=== PATIENT | female | born 1935 | race Caucasian/White ===

== ENCOUNTER → 2023-11-17 09:56 | Outpatient (REF) | payer MEDICARE, SELFPAY | LOC: HWRAD 09:56 | PROVIDERS: ATTENDING PHYSICIAN Internal Medicine | DX: R10.84 Generalized abdominal pain (principal) | CPT/HCPCS: 74018 ==

== ENCOUNTER 2023-11-30 14:20 | Inpatient (IN) | payer MEDICARE, SELFPAY ==
[2023-11-30] VITALS (10 sets, daily range): BP systolic 122–189; BP diastolic 61–100; BMI 34.5; BMI 33.7
--- NOTE | 2023-11-30 08:56 | ED.GENMED ---
History of Present Illness
General
Chief Complaint: Abdominal Symptoms
Source: patient and family
Time Seen by Provider: 11/30/23 08:31
Travel History
Have you had any contact with someone who has COVID-19?: No
Do you have any symptoms of coronavirus? Fever > 100 degrees, chills, cough, shortness of breath, sore throat, loss of taste or smell, muscle aches, or headache?: No
History of Present Illness
History of Present Illness:
88-year-old female presents emergency room complaining of abdominal discomfort, distention, nausea. Patient has been having the symptoms for the past couple weeks. They seem to improve late last week but have worsened again. Patient has no
appetite to eat. She has lost about 20 pounds over the past 3 months. She feels somewhat constipated but has had bowel movements. Her last bowel movement was 4 days ago. Patient was seen by her primary care provider who did some blood work and a
obstruction series. Patient was told that the blood work was mostly normal and that the obstruction series showed a slight blockage and that she should increase her fiber intake. Patient has not had any vomiting.
Past History
Past History
ED Past Medical History: HTN, Hypercholesterolemia and NIDDM
ED Past Surgical History: Gynecological
Social History
Tobacco: Non-smoker
Phy Exam
Physical Exam
Physical Exam:
General: Awake, Alert, Oriented X3. No acute distress.
Vitals: Hypertensive
Head: Atraumatic
Eyes: Pupils equal, EOMI
Throat: Airway intact, no exudates
Neck: Trachea midline
Lungs: Clear and equal b/l
Heart: Regular rate, no murmurs
Abd: Soft, mildly distended, tender to palpation without rebound, no umbilical or inguinal hernias noted, No pulsatile mass
Rectal: Not impacted though there is a small amount of mobile stool in the rectum
Neuro: Nonfocal
Skin: Warm, dry, no rash
Extremities: pulses equal b/l, no edema
Course
Orders/Labs/Results
Orders:
Orders
11/30/23 08:54
0.9% Sodium Chloride 500 ml [Nss] 500 ml IV BOLUS
Iohexol [Omnipaque] See Protocol PO NOW STA
Ondansetron Injectable [Zofran] 4 mg IV NOW STA
11/30/23 08:55
CT Abd/pel W Iv And Oral Contr Urgent
Comment:
Reason For Exam: nausea, abd pain, weight loss
11/30/23 09:55
Complete Blood Count/With Diff Urgent
Comprehensive Metabolic Panel Urgent
Lipase Urgent
11/30/23 09:57
Urinalysis Reflex To Culture Urgent
Date Specimen was Collected: 11/30/23
Time Specimen was Collected: 09:56
Urine Microscopic Reflex Cult Urgent
Urine Culture Urgent
JOSE Source: U
Specimen Description:
Date Specimen was Collected: 11/30/23
Time Specimen was Collected: 09:56
11/30/23 13:15
Piperacillin/Tazo 4.5 Gram [Zosyn] 4.5 gram in 100 ml IV NOW
Potassium Chloride 10% Elixir [KCl Elixir] 40 meq PO NOW STA
11/30/23 13:36
ColoRectal Surgery Consult Routine
Consulting Provider: Bartolome Mendieta
Was physician already notified: Yes
11/30/23 13:53
HYDROmorphone [Dilaudid] 0.25 mg .ROUTE .STK-MED ONE
Ondansetron Injectable [Zofran] 4 mg .ROUTE .STK-MED ONE
11/30/23 13:54
Ondansetron Injectable [Zofran] 4 mg IV NOW STA
11/30/23 13:55
HYDROmorphone [Dilaudid] 0.25 mg IV NOW STA
11/30/23 14:03
Admit/Transfer Patient As Directed
Co-Sign Provider:
Level of Care: Inpatient admission
Assign to:: Medical/Surgical
Physician / Group: guadalupe/hospitalist
Diagnosis: abd pain
Reason for Hospitalization: abd pain, colonic lesion vs. stricture
Expected length of stay greater than two midnights?: Yes
ELOS- Estimated Length of Stay in days: 3
I certify the patient meets the requirements for IP care: Yes
11/30/23 14:04
Code Status As Directed
Resuscitation Status: Do not resuscitate
Reached after discussion with pt or family/Healthcare POA: Yes
DNR Bracelet Application ONCE
11/30/23 14:46
Oxycodone [Roxicodone] 5 mg PO Q4HPRN PRN
Abnormal Lab Results
11/30/23 11/30/23
09:55 09:57
WBC 11.6 H 10^3/uL
(4.8-10.8)
MCV 79.6 L fL
(81.0-99.0)
MCH 25.7 L pg
(27.0-31.0)
MCHC 32.2 L g/dL
(33.0-37.0)
RDW 17.7 H %
(11.5-14.5)
MPV 11.3 H fL
(7.4-10.4)
Absolute Neuts (auto) 9.2 H 10^3/uL
(1.4-6.5)
Absolute Monos (auto) 0.7 H 10^3/uL
(0.1-0.6)
Neutrophils % 79.1 H %
(42.2-75.2)
Lymphocytes % 12.7 L %
(20.5-51.1)
Potassium 3.3 L mmol/L
(3.5-5.1)
Creatinine 0.5 L mg/dL
(0.6-1.0)
Glucose 109 H mg/dl
(70-99)
Urine Ketones 3+ A
(Negative)
Urine Bilirubin 1+ A
(Negative)
Urine Urobilinogen 2+ A
(Neg - 1+)
Leukocyte Esterase Rfl 2+ A
(Negative)
Urine WBC (Reflex) 11-15 A /HPF
(0-5)
Urine Bacteria (Reflex) Moderate A
(Negative)
11/30/23 09:55
11/30/23 09:55
Vital Signs
Initial and Last Documented VS:
Initial Vital Signs
Temp Pulse Resp BP Pulse Ox
97.8 F 83 18 158/83 97
11/30/23 07:25 11/30/23 07:25 11/30/23 07:25 11/30/23 07:25 11/30/23 07:25
Last Documented Vital Signs
Temp Pulse Resp BP Pulse Ox
97.8 F 76 18 162/82 94
11/30/23 07:25 11/30/23 14:30 11/30/23 14:30 11/30/23 13:40 11/30/23 14:30
MDM/Problems Addressed
Differential Diagnosis Includes:
constipation, partial LBO, complete LBO, diverticulitis, sbo
MDM/Problems Addressed:
Patient presents with abdominal pain, nausea. She has had irregular bowel movements. She is fairly tender to exam and looks uncomfortable. CT with p.o. and IV contrast ordered with primary concern being a large or small bowel obstruction. Labs
hypokalemia. CT shows partial large bowel obstruction secondary to a stricture or mass. Differential includes diverticulitis with inflammatory stricture so a dose of Zosyn was ordered. Patient will require hospitalization for further evaluation
*Radiology
Radiology exam reviewed: radiology read reviewed
*Pulse Oximetry
Patient hypoxic: no
*Critical Care Note
Total Time (30-74mins, 75-104mins- exclusive of procedures): Not Applicable
Patient Management
Social determinants of health affecting care: Living situation and Strong social support
ED Attending Note
-
Portions of this chart may have been created with voice recognition software.� Occasional wrong word or��sound alike� substitutions may have occurred due to the inherent limitations of voice recognition software.
Discharge Plan
Departure
Patient Disposition: Admit
Date of Disposition: 11/30/23
Time of Disposition: 13:16
Admit to: Med/Surg
Presentation/result/management discussed w/ accepting MD/DO: Hospitalist
Condition: Fair
Discharge Problem:
partial large bowel obststruction
Interventions
Interventions:
*Risk Screen - Suicide Last Done: 11/30/23 07:25
*General Assessment Last Done: 11/30/23 07:25
*Neglect/Abuse Screening Last Done: 11/30/23 07:25
ED- Fall Risk Assessment Last Done: 11/30/23 10:05
*ED COVID-19 Vaccine History Last Done: 11/30/23 10:05
CC-Kvaxoy-Gbboxjxvaj Assessment Last Done: 11/30/23 10:05
[2023-11-30] MEDS: ZOFRAN 4 MG IV ×2 (09:50→13:55)
[2023-11-30] MEDS: OMNIPAQUE 50 ML PO (09:50)
[2023-11-30] MEDS: NSS 500 IV (09:51)
[2023-11-30 10:26] LABS: ALT (SGPT) 15 U/L (0-35); AST (SGOT) 30 U/L (14-36); Albumin 4.2 g/dl (3.5-5.0); Alkaline Phosphatase 83 U/L (38-126); Blood Urea Nitrogen 8 mg/dl (7-17); Calcium 9.6 mg/dl (8.4-10.2); Carbon Dioxide 28 mmol/L (22-30); Chloride 101 mmol/L (98-107); Estimated Creatinine Clearance 71 ml/min; Glucose 109 mg/dl (70-99); Lipase 54 U/L (23-300); Potassium 3.3 mmol/L (3.5-5.1); Sodium 137 mmol/L (135-145); Total Bilirubin 0.8 mg/dl (0.2-1.3); eGFR > 60.00
[2023-11-30 10:27] LABS: Urine Albumin Trace (Neg - Trace); Urine Bilirubin 1+ (Negative); Urine Character Clear (Clear); Urine Color Yellow; Urine Glucose Negative (Negative); Urine Ketone 3+ (Negative); Urine Leukocyte 2+ (Negative); Urine Nitrite Negative (Negative); Urine Occult Blood Negative (Negative); Urine Specific Gravity 1.025 (<1.030); Urine Urobilinogen 2+ (Neg - 1+)
[2023-11-30 10:42] LABS: % Basophils 0.9 % (0-2); % Eosinophils 0.6 % (0-6); % Immature Granulocytes 0.3 % (0-0.5); % Lymphocytes 12.7 % (20.5-51.1); % Monocytes 6.4 % (1.7-9.3); % Neutrophils 79.1 % (42.2-75.2); Absolute Basophils 0.1 10^3/uL (0-0.2); Absolute Eosinophils 0.1 10^3/uL (0-0.7); Absolute Lymphocytes 1.5 10^3/uL (1.2-3.4); Absolute Monocytes 0.7 10^3/uL (0.1-0.6); Absolute Neutrophils 9.2 10^3/uL (1.4-6.5); Hematocrit 39.4 % (37.0-47.0); Hemoglobin 12.7 g/dL (12.0-16.0); Mean Corp Hgb Conc. 32.2 g/dL (33.0-37.0); Mean Corpuscular Hgb 25.7 pg (27.0-31.0); Mean Corpuscular Volume 79.6 fL (81.0-99.0); Mean Platelet Volume 11.3 fL (7.4-10.4); Nucleated Red Blood Cells % 0 %; Platelet Count 333 10^3/uL (130-400); Red Blood Cell Count 4.95 10^6/uL (4.20-5.40); Red Cell Dist. Width 17.7 % (11.5-14.5); White Blood Cell Count 11.6 10^3/uL (4.8-10.8)
[2023-11-30 11:47] LABS: Urine Amorphous Seen; Urine Mucus Many; Urine Squamous Cell >30 /LPF (Few)
[2023-11-30 11:48] LABS: Urine Hyaline Cast 0-2 /LPF (0-2)
[2023-11-30 11:50] LABS: Urine Bacteria Moderate (Negative); Urine Red Blood Cell 0-2 /HPF (0-2)
--- NOTE | 2023-11-30 13:36 | HPS.HSE ---
Family Physician
-
Family Physician: Teodora Fraser PA-C
Chief Complaint
-
abd pain
History of Present Illness
88-year-old female past medical history as below who was presented with abdominal pain. Symptoms have been ongoing intermittently since October. Patient with some nausea but no vomiting. No bowel movement since last Monday. Has lost weight.
Severely decreased appetite. Had colonoscopy long time ago and was told not to follow-up due to age. Per daughters at bedside patient with history of diverticulitis. States on a regular basis she has daily bowel movements. Complaining of
abdominal pain. No fevers or chills. Denies any chest pain, shortness of breath or dysuria or increase in urgency or hematuria or headache or dizziness.
Medical History
Past Medical History
Past Medical History: Reports Other
Additional Past Medical History:
Primary hypertension
Prediabetes
Hyperlipidemia
Diverticulitis history
Mood disorder
Anxiety
Past Surgical History: Reports Gynocological (Hysterectomy)
Social History
Tobacco: Non-smoker
Alcohol: None
Family History
Family History: Not pertinent
Allergies / Home Medications
Allergies reflects when Allergies were last updated in [facility].
Home Medications with original date entered in [facility]
Allergy/Medication List:
Allergies
Allergy/AdvReac Type Severity Reaction Status Date / Time
No Known Allergies Allergy Verified 11/30/23 07:25
Home Medications
alpha lipoic acid 300 mg capsule 300 mg PO Daily 06/22/18
aspirin 325 mg tablet,delayed release 325 mg PO QPM 06/22/18
citalopram 20 mg tablet 20 mg PO DAILY 06/22/18
lisinopril 20 mg tablet 20 mg PO DAILY 06/22/18
lorazepam 0.5 mg tablet 0.5 mg PO DAILYPRN PRN ANXIETY 06/22/18
lovastatin 20 mg tablet,extended release 24 hr (Altoprev) 20 mg PO QPM 06/22/18
metformin 500 mg tablet 500 mg PO HS 06/22/18
multivitamin with folic acid 400 mcg tablet (Tab-A-Jerica) 1 tab PO DAILY 06/22/18
acetaminophen 325 mg tablet 325 mg PO Q4HPRN PRN if temp > 101 F/ mild pain ##30 06/25/18
loratadine 10 mg tablet 10 mg PO DAILY 11/30/23
Review of Systems
-
History Source: Patient and Family
A 12 point ROS was completed and negative except as noted: Yes
Physical Exam
Vital Signs
Vital Signs
Temp Pulse Resp BP Pulse Ox
97.8 F 79 27 189/79 97
11/30/23 07:25 11/30/23 12:45 11/30/23 12:45 11/30/23 12:31 11/30/23 12:45
Physical Exam
General: Well Developed, Well Nourished and No Apparent Distress
HEENT: NormoCephalic, Moist mucous membranes and Atraumatic
Respiratory: Clear
Cardiac: S1/S2 and Regular Rhythm; No Murmur or Rub
GI: Soft, Non Distended, Normal Bowel Sounds and Tender (Periumbilical and left middle quadrant); No Organomegaly
Rectal: Deferred by Provider
Musculoskeletal: No Clubbing, No Cyanosis and No Edema
Skin: No Rash
Neuro: Awake, No Motor Deficits and Nonfocal/grossly intact
Psych: Calm
Laboratory Results
-
11/30/23 09:55
11/30/23 09:55
Laboratory Results
Total Bilirubin 0.8 mg/dl (0.2-1.3) 11/30/23 09:55
AST 30 U/L (14-36) 11/30/23 09:55
ALT 15 U/L (0-35) 11/30/23 09:55
Alkaline Phosphatase 83 U/L (38-126) 11/30/23 09:55
Lipase 54 U/L (23-300) 11/30/23 09:55
Impression/Plan
-
#Abdominal pain likely secondary to descending colonic lesion 3 cm versus stricture likely secondary to diverticulitis
#History of diverticulitis
#Leukocytosis
Will start patient on IV antibiotic Unasyn
Clear liquid diet
Antinausea meds
PPI IV
Pain control
Start gentle IV fluids
Colorectal surgical consultation
#Primary hypertension
Hold BP meds for now
#Hypokalemia
replete/monitor
#Diabetes mellitus
Hold metformin
Insulin sliding scale and Accu-Cheks
#Depression/anxiety
Hold SSRIs. Continue Ativan
DVT prophylaxis with Lovenox
Discussed with 2 daughter's at bedside in detail
CODE STATUS DNR per patient and confirmed with 2 daughters at bedside
I spent a total of 78 minutes with the patient or on the floor. More than 50% of this time involved counseling and coordination of care.
[2023-11-30] MEDS: KCL ELIXIR 40 MEQ PO (13:44)
[2023-11-30] MEDS: ZOSYN 100 IV (13:45)
[2023-11-30] MEDS: DILAUDID 0.25 MG IV (13:55)
--- NOTE | 2023-11-30 14:03 | CON.CRS ---
Consultation
-
Date/Time Consultation Requested: 11/30/2023. 13:36
Date/Time Consultation Performed: 11/30/2023, 14:20
Requesting Provider: Wes Jefferson MD
Performing Provider: Bartolome Mendieta MD
Reason for Consultation: descending colon mass
Medical History
-
Chief Complaint: abdominal pain
History of Present Illness:
88-year-old female presents to the emergency department complaining of off-and-on abdominal pain since August 2023. The patient states that the pain did not really bother her but then her daughters noticed she had lost upwards of 30 pounds since
July. She began to feel increasing abdominal pain in October with associated distention, and lack of appetite. She felt like she knew something was wrong so she went to her primary care physician about a week ago who did blood work which was
normal and x-rays showed a large stool burden with no obstruction. She was told to eat more fiber at that time. The past week she has been feeling worse with increasing abdominal pain and she has not been able to eat much and has been sleeping
more often than she usually does. She was prescribed antinausea medication when she started to develop nausea which improved her symptoms. However, yesterday her pain was a 9.5 out of 10 and she came to the ER this morning. She currently says she
feels very belchy and has been hiccuping all morning. She feels quite distended. She has not had a bowel movement in 6 days. She denies blood in her stool. She states she has not had flatus for the past couple of days. Her past abdominal
surgery includes a hysterectomy. Her last colonoscopy was over 10 years ago and was normal. She denies a family history of colon or rectal cancer.
In the ER her white count is 11.6. Her hemoglobin is 12.7. Her vital signs are normal. CT of the abdomen and pelvis is suspicious for approximate 3 cm partially obstructing mass/malignancy in the proximal descending colon with some accompanying
small adjacent mesenteric lymph nodes. Stricture with inflammation would be less likely. No free air.
Past Medical History
Past Medical History: HTN, Hypercholesterolemia and Other (NIDDM)
Past Surgical History: Gynecological (hysterectomy)
Social History
Tobacco: Non-Smoker
Family History
Family History: Reviewed & Not Pertinent
Allergies / Home Medications
Allergy/AdvReac Type Severity Reaction Status Date / Time
No Known Allergies Allergy Verified 11/30/23 07:25
�Medication �Instructions �Recorded �Confirmed �Type
alpha lipoic acid 300 mg capsule 300 mg PO Daily 06/22/18 11/30/23 History
aspirin 325 mg tablet,delayed 325 mg PO DAILY 06/22/18 11/30/23 History
release
citalopram 20 mg tablet 20 mg PO DAILY 06/22/18 11/30/23 History
lisinopril 20 mg tablet 20 mg PO DAILY 06/22/18 11/30/23 History
lorazepam 0.5 mg tablet 0.5 mg PO DAILYPRN PRN ANXIETY 06/22/18 11/30/23 History
metformin 500 mg tablet 500 mg PO DAILY 06/22/18 11/30/23 History
multivitamin with folic acid 400 1 tab PO DAILY 06/22/18 11/30/23 History
mcg tablet (Tab-A-Jerica)
acetaminophen 325 mg tablet 325 mg PO Q4HPRN PRN if temp > 101 06/25/18 11/30/23 Rx
F/ mild pain ##30
loratadine 10 mg tablet 10 mg PO DAILY 11/30/23 11/30/23 History
lovastatin 20 mg tablet 20 mg PO DAILY 11/30/23 11/30/23 History
Review of Systems
-
History Source: Patient
Constitutional: Weight Loss
Abdomen/GI: Nausea, Constipated, Anorexia and Pain
A 10 point review of systems was completed, and was negative except as per HPI.
Physical Exam
Vital Signs
Temp 97.8 F 11/30/23 07:25
Pulse 79 11/30/23 13:45
Resp Rate 21 11/30/23 13:45
Blood pressure 162/82 11/30/23 13:40
SaO2 92 11/30/23 13:45
11/29/23 11/30/23 12/01/23
06:59 06:59 06:59
Actual Weight 88.3 kg
Body Mass Index (BMI) 34.5
Lab Results / Allergies
11/30/23 09:55
11/30/23 09:55
WBC 11.6 10^3/uL (4.8-10.8) H 11/30/23 09:55
Hgb 12.7 g/dL (12.0-16.0) 11/30/23 09:55
Hct 39.4 % (37.0-47.0) 11/30/23 09:55
Plt Count 333 10^3/uL (130-400) 11/30/23 09:55
Abs Immat Gran (auto) 0.0 10^3/uL (0-0.05) 11/30/23 09:55
Neutrophils % 79.1 % (42.2-75.2) H 11/30/23 09:55
Allergy/AdvReac Type Severity Reaction Status Date / Time
No Known Allergies Allergy Verified 11/30/23 07:25
Physical Exam
General: Well Developed, Well Nourished and No Apparent Distress
GI: Soft, Tender (LLQ) and Distended
Neuro: AO x 3
Psych: Calm
Data Reviewed
-
CT Scan: Image Personally Visualized and interpreted, Report Reviewed by me and Discussed with Patient
Labs: Labs Reviewed by me, Discussed with Physician and Discussed with Patient
Old Records: Reviewed
Assessment / Plan
-
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
Plan:
Patient to remain NPO. Will reach out to GI and see if he is a candidate for colonic stent. I went over the CT with the family. Will place NGT given nausea/distention.
[2023-11-30] MEDS: LR 1000 IV (17:17)
[2023-11-30] MEDS: APRESOLINE 5 MG IV (17:42)
[2023-11-30] MEDS: UNASYN IV (17:42)
[2023-11-30] MEDS: NSS (PRESERVATIVE FREE) 10 ML IV (17:48)
[2023-11-30] MEDS: PROTONIX IV 40 MG IV (17:48)
[2023-11-30 17:55] LABS: Glucose - Point of Care 142 mg/dl (70-99)
[2023-11-30] MEDS: MORPHINE SULFATE 2 MG IV (18:14)
--- NOTE | 2023-11-30 19:46 | PTCARENOTE ---
[facility] 1645 pt came up form ED to room 414-1. Pt able to walk into room. Admission and assessment done. Pt with NGT to left nare just placed in ED. Pt spitting up some blood with small clots. Bloody drainage coming from the NGT into canister also
aprox 200ml Dr Robertson notified of this and of patients BP of 172/100. (Lovenox also held), IV hydrazine ordered for elevated BP. Milana ARCOS also notified of bloody drainage and pt spitting up blood. Pt with some pain to abd, morphine
given. Pt has family in the room. Pt instructed to ring for assistance.
[2023-11-30] MEDS: DILAUDID 0.5 MG IV (20:56)
[2023-11-30 23:41] LABS: Glucose - Point of Care 136 mg/dl (70-99)
[2023-12-01] VITALS (8 sets, daily range): BP systolic 130–156; BP diastolic 57–70
[2023-12-01] MEDS: UNASYN IV ×4 (00:58→20:05)
[2023-12-01 05:46] LABS: Glucose - Point of Care 126 mg/dl (70-99)
[2023-12-01] MEDS: LR 1000 IV (05:49)
--- NOTE | 2023-12-01 06:47 | CON.GI ---
Addendum entered and electronically signed by Keny Vásquez MD 12/01/23 13:00:
Patient seen and examined, agree with nurse practitioner note. Patient is an 88-year-old, overall mostly healthy who presents with increasing constipation and nausea since early October. CT scan shows concern for 3 cm obstructing mass in the
proximal descending colon with adjacent lymphadenopathy, concerning for malignancy. She had NG tube placed with some improvement in her bloating since then. She not had any bowel movements for the last week. On exam she has mild upper abdominal
tenderness though is soft and overall minimal, no rebound or guarding. Colorectal surgery has been consulted, discussed with Dr. Blevins, for possible colonic stent today.
Original Note:
Consultation
-
Date/Time Consultation Requested: 11/30/23 1700
Date/Time Consultation Performed: 12/01/23 0800
Requesting Provider: Bartolome Mendieta MD
Performing Provider: JEEVAN Latif, Devin Vásquez MD
Reason for Consultation: eval for colon stent
Medical History
Chief Complaint / HPI
Chief Complaint: nausea constipation
History of Present Illness:
Pt is an 88yo presents with hx HTN, DM, hyperlipidemia, diverticulitis, mood disorder, anxiety with onset of nausea and decrease appetite since early October. Symptom progressed and she has no BM's since last week despite multiple laxatives. + wt
loss. CT on admission with concern for 3 cm obstructing mass/malignancy in proximal descending colon with adjacent nodes. Stricture with inflammation less likely. No free air. liver calcification likely from prior cyst noted, smaller lesion
liver cysts, right renal lesion benign angiomyolipoma and small HH. Hx colonoscopy 2005 with Internal hemorrhoids, small lipoma AC.
Pt also admits to increased GERD with nausea over last few weeks. She denies vomiting, diarrhea, or rectal bleeding. She was noted with blood after NGT placed with trauma of placement but some improved bloating since placement.
Past Medical History
Past Medical History: HTN, Hypercholesterolemia, NIDDM, Psychiatric (mood disorder, anxiety) and Other ( diverticulitis, osteoarthritis )
Past Surgical History: Gynecological (hysterectomy)
Social History
Tobacco: Non-Smoker
Alcohol: None
Drug: None
Living: Alone
Employment: Retired
Family History
Family History: Other (no family hx colon CA or polyps)
Allergies / Home Medications
Allergy/AdvReac Type Severity Reaction Status Date / Time
No Known Allergies Allergy Verified 11/30/23 07:25
�Medication �Instructions �Recorded
alpha lipoic acid 300 mg capsule 300 mg PO Daily 06/22/18
aspirin 325 mg tablet,delayed 325 mg PO DAILY 06/22/18
release
citalopram 20 mg tablet 20 mg PO DAILY 06/22/18
lisinopril 20 mg tablet 20 mg PO DAILY 06/22/18
lorazepam 0.5 mg tablet 0.5 mg PO DAILYPRN PRN ANXIETY 06/22/18
metformin 500 mg tablet 500 mg PO DAILY 06/22/18
multivitamin with folic acid 400 1 tab PO DAILY 06/22/18
mcg tablet (Tab-A-Jerica)
acetaminophen 325 mg tablet 325 mg PO Q4HPRN PRN if temp > 101 06/25/18
F/ mild pain ##30
loratadine 10 mg tablet 10 mg PO DAILY 11/30/23
lovastatin 20 mg tablet 20 mg PO DAILY 11/30/23
Review of Systems
-
History Source: Patient and Family
Constitutional: Reports Other (hard of hearing )
EENT: Reports No Symptoms
Respiratory: Reports No Symptoms
Cardiac: Reports No Symptoms
Abdomen/GI: Reports Nausea, Constipated and Other (bloating )
: Reports No Symptoms
Musculoskeletal: Reports No Symptoms
Skin: Reports No Symptoms
Neurological: Reports Weakness
Endocrine: Reports No Symptoms
Hematologic/Lymphatic: Reports Bleeding (from NGT trauma)
Vital Signs
Temp Pulse Resp BP Pulse Ox
98.2 F 80 16 122/61 96
11/30/23 23:00 11/30/23 23:00 11/30/23 23:00 11/30/23 23:00 11/30/23 23:00
Physical Exam
Exam
General: Well Developed, Well Nourished and Other (elderly female)
HEENT: Normocephalic and Anicteric
Respiratory: Clear
Cardiac: Regular Rhythm
GI: Soft, Tender (mild), Distended (mild ) and Other (NGT with some blood in canister-- per family some vomiting clots after placement improved )
Musculoskeletal: No Clubbing and No Cyanosis
Skin: Warm and Dry
Neuro: Awake, Alert, AO x 3 and Other (hard of hearing )
Psych: Calm
Results
WBC 11.6 10^3/uL (4.8-10.8) H 11/30/23 09:55
Hgb 12.7 g/dL (12.0-16.0) 11/30/23 09:55
Hct 39.4 % (37.0-47.0) 11/30/23 09:55
MCV 79.6 fL (81.0-99.0) L 11/30/23 09:55
Plt Count 333 10^3/uL (130-400) 11/30/23 09:55
Absolute Neuts (auto) 9.2 10^3/uL (1.4-6.5) H 11/30/23 09:55
Sodium 137 mmol/L (135-145) 11/30/23 09:55
Potassium 3.3 mmol/L (3.5-5.1) L 11/30/23 09:55
Chloride 101 mmol/L (98-107) 11/30/23 09:55
Carbon Dioxide 28 mmol/L (22-30) 11/30/23 09:55
BUN 8 mg/dl (7-17) 11/30/23 09:55
Creatinine 0.5 mg/dL (0.6-1.0) L 11/30/23 09:55
Calcium 9.6 mg/dl (8.4-10.2) 11/30/23 09:55
Total Bilirubin 0.8 mg/dl (0.2-1.3) 11/30/23 09:55
AST 30 U/L (14-36) 11/30/23 09:55
ALT 15 U/L (0-35) 11/30/23 09:55
Alkaline Phosphatase 83 U/L (38-126) 11/30/23 09:55
Lipase 54 U/L (23-300) 11/30/23 09:55
Diagnostic Image Results:
11/17/23 abd film: Nonobstructive bowel gas pattern
11/30/23 CT Abd/pel W Iv And Oral Contr
Findings suspicious for approximate 3 cm partially obstructing mass/malignancy in the proximal descending colon with some accompanying small adjacent mesenteric lymph nodes. Stricture with inflammation would be less likely. No free air.
Small collection of calcifications in the left lobe of the liver most likely the sequela of involuted cyst seen on remote prior CT.
Few small low-attenuation hepatic lesions centrally only the largest of which can be confirmed as cysts.
Small fatty density right renal lesion compatible with a benign angiomyolipoma.
Small hiatal hernia.
Prior GI Procedures:
EGD: none
Colonoscopy:2005 internal hemorrhoids, small lipoma AC
Assessment / Plan
-
Pt is an 88yo presents with hx HTN, DM, hyperlipidemia, diverticulitis, mood disorder, anxiety with onset of nausea and decrease appetite. she has no BM's since last week with wt loss. CT on admission with concern for 3 cm obstructing
mass/malignancy in proximal descending colon with adjacent nodes. Stricture with inflammation less likely. No free air. liver calcification likely from prior cyst noted, smaller lesion liver cysts, right renal lesion benign angiomyolipoma and
small HH.
-concern for descending colon lesion on CT with large bowel obstruction
-wt loss
-NGT with trauma and bleeding with placement
-hx diverticulitis years ago
-leukocytosis
-constipation
-hypokalemia
other medical problems:
-DM
-HTN
-depression/anxiety
PLAN:
etiology of symptoms with concern for large bowel obstruction -- diverticular vs mass vs other
plan for colonoscopy for evaluation with possible stent placement
AM labs pending to recheck K as repleted yesterday will add INR
NPO
cont NGT -- confirmed with air auscultation and improved bloating on exam-- some trauma with bleeding on placement now improving cont to monitor
reviewed is stent placed with need stent diet
updated family all questions answered-
-
-
Thank you for consultation and allowing me to participate in the patient's care. Please call the cyber incident responder GI physician during the after hours with any questions or concerns.
[2023-12-01] MEDS: PROTONIX IV 40 MG IV (08:08)
[2023-12-01] MEDS: NSS (PRESERVATIVE FREE) 10 ML IV (08:08)
[2023-12-01 09:20] LABS: % Basophils 0.8 % (0-2); % Eosinophils 1.9 % (0-6); % Immature Granulocytes 0.5 % (0-0.5); % Lymphocytes 8.8 % (20.5-51.1); % Monocytes 8.7 % (1.7-9.3); % Neutrophils 79.3 % (42.2-75.2); Absolute Basophils 0.1 10^3/uL (0-0.2); Absolute Eosinophils 0.2 10^3/uL (0-0.7); Absolute Immature Granulocytes 0.1 10^3/uL (0-0.05); Absolute Lymphocytes 0.9 10^3/uL (1.2-3.4); Absolute Monocytes 0.9 10^3/uL (0.1-0.6); Absolute Neutrophils 7.8 10^3/uL (1.4-6.5); Hematocrit 31.9 % (37.0-47.0); Mean Corp Hgb Conc. 31.7 g/dL (33.0-37.0); Mean Corpuscular Hgb 25.8 pg (27.0-31.0); Mean Corpuscular Volume 81.6 fL (81.0-99.0); Nucleated Red Blood Cells % 0 %; Red Blood Cell Count 3.91 10^6/uL (4.20-5.40); Red Cell Dist. Width 17.3 % (11.5-14.5); White Blood Cell Count 9.9 10^3/uL (4.8-10.8)
[2023-12-01 09:31] LABS: Hemoglobin 10.1 g/dL (12.0-16.0)
[2023-12-01 09:37] LABS: Blood Urea Nitrogen 10 mg/dl (7-17); Calcium 8.7 mg/dl (8.4-10.2); Carbon Dioxide 28 mmol/L (22-30); Chloride 103 mmol/L (98-107); Estimated Creatinine Clearance 70 ml/min; Glucose 103 mg/dl (70-99); Potassium 3.1 mmol/L (3.5-5.1); Sodium 136 mmol/L (135-145); eGFR > 60.00
[2023-12-01 10:27] LABS: Mean Platelet Volume 10.9 fL (7.4-10.4); Platelet Count 244 10^3/uL (130-400)
--- NOTE | 2023-12-01 10:47 | W.PN.HOSP.TC ---
Today's Communication/Plan
-
Colonoscopy
Continue with IV fluids
Pain control
Antinausea meds
Replete KCl
Assessment / Plan
Assessment / Plan
#Abdominal pain likely secondary to descending colonic lesion 3 cm versus stricture likely secondary to diverticulitis
#History of diverticulitis
#Leukocytosis
Will start patient on IV antibiotic Unasyn for now
N.p.o.
Antinausea meds
PPI IV
Pain control
Status post traumatic NG tube placement
Start gentle IV fluids
Colorectal surgical consultation
GI consulted plan for colonic stent placement
#Hypokalemia
replete/monitor
#Primary hypertension
Hold BP meds for now
#Hypokalemia
replete/monitor
#Diabetes mellitus
Hold metformin
Insulin sliding scale and Accu-Cheks
#Depression/anxiety
Hold SSRIs.
DVT prophylaxis SCDs some improvement in NG tube output
Discussed with daughter at bedside in detail
CODE STATUS DNR per patient and confirmed with 2 daughters at bedside
Anticipated Discharge: > 48 hours
Subjective/Interval History
-
Date of Service: December 01, 2023
States of intermittent abdominal pain
Status post NG tube placement in the ER on admission
Objective Data
-
Labs:
Laboratory Results
12/01/23 12/01/23
08:35 09:29
WBC 9.9
Hgb 10.1 L D
Hct 31.9 L
Plt Count 244 D
PT Pending
INR Pending
Sodium 136
Potassium 3.1 L
Chloride 103
Carbon Dioxide 28
BUN 10
Creatinine 0.5 L
Glucose 103 H
Calcium 8.7
Vital Signs:
Vital Signs
Temp Pulse Resp BP Pulse Ox
98.2 F 74 16 131/65 92
12/01/23 07:41 12/01/23 07:41 12/01/23 07:41 12/01/23 07:41 12/01/23 08:25
I&O
11/30/23 12/01/23 12/02/23
06:59 06:59 06:59
Intake Total 1320 / 1320
Output Total 250 / 250
Balance 1070 / 1070
Physical Exam
-
General: Well Developed and No Apparent Distress
HEENT: Normocephalic, Atraumatic, Moist Mucous Membranes and Other (NG tube with bilious/bloody output)
Respiratory: Clear to Auscultation
Cardiac: Regular Rhythm and S1/S2; Negative Murmur, Rub or Gallop
GI: Soft, Normal Bowel Sounds, Tender and Distended; Negative Organomegaly
Rectal: Deferred by Provider
Musculoskeletal: No Clubbing, No Cyanosis and No Edema
Skin: Negative Rash
Neuro: Awake, No Motor Deficits and Nonfocal/Grossly Intact
Psych: Calm
--- NOTE | 2023-12-01 11:05 | CM ---
Addendum entered by Susy Bobby 12/01/23 11:11:
IMM benefit explained to daughter; form signed @[id number]
Original Note:
Met with patient and daughters at the bedside; initial assessment completed
Pharmacy verified: [facility]
Daughter, Delores, reported that her mother lives in an one floor In-Law suite attached to her home; bathroom is handicap accessible; patient's son lives next door
PLOF: daughter reported that mother was independent with ADLs; ambulated with a walker or cane; no longer drives
DME: walker, cane, grab bars in bath, raised toilet, shower chair
SNF/Rehab/Home Health utilization history: none in the past 5 years
Plan: discharge disposition to be determined; case management will continue to follow and support DC needs
[2023-12-01 11:55] LABS: INR 1.21; PT 15.1 Sec (11.4-14.6)
[2023-12-01] MEDS: KCL 270 MEQ IV (12:26)
--- NOTE | 2023-12-01 12:27 | W.PN.CRS1 ---
Today's Communication / Plan
-
continue ngt
stent placement today with GI
Assessment/Plan
-
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
Plan:
1. WBC still normal. Vitals normal.
2. Continue IV antibiotics.
3. Continue NPO status with NGT.
4. For colonic stent today with GI.
5. Wound RN for stoma marking.
6. Possible colectomy with colostomy if unable to place stent. Discussed with patient and family.
Subjective Data
Subjective Data
Date of Service: December 01, 2023
Patient states she feels a little better. Her abdomen is less distended. She has not had any bowel function.
Objective Data
-
Vital Signs
Temp Pulse Resp BP Pulse Ox
98.2 F 74 16 131/65 92
12/01/23 07:41 12/01/23 07:41 12/01/23 07:41 12/01/23 07:41 12/01/23 08:25
Intake & Output
11/30/23 12/01/23 12/02/23
06:59 06:59 06:59
Intake Total 1320 / 1320
Output Total 250 / 250
Balance 1070 / 1070
Intake:
IV fluids (Total) 1000 / 1000
IV piggybacks 200 / 200
Amount instilled into GI Tube ( 120 / 120
Total)
[place] Sump 120 / 120
Output:
Gastrointestinal tube output ( 250 / 250
Total)
[place] Sump 250 / 250
Other:
Number of unmeasured voidings 3
Number of approximated MODERATE 1
amounts of urine
Lab Results
12/01/23 08:35
12/01/23 08:35
Physical Exam
-
General: No Acute Distress and AOx3
Abdomen: Soft, Distended (moderate ) and Non Tender
Skin: Warm and Dry
[2023-12-01 12:28] LABS: Glucose - Point of Care 102 mg/dl (70-99)
[2023-12-01 12:43] LABS: Glycohemoglobin (HgbA1c) 6.3 % (4.0-5.6)
--- NOTE | 2023-12-01 13:00 | W.PN.UPDATE ---
Update Note
Progress Note Update
For billing purposes
--- NOTE | 2023-12-01 13:38 | PTCARENOTE ---
Tap water enema 500ml given with moderate amount formed brown stool return. Pt tolerated well.
--- NOTE | 2023-12-01 13:42 | WOUNDNOTE ---
[facility] RN NOTE: Patient visited for left sided and upper right sided stoma marking. Patients abdomen soft, obese and patient reports increased distension. Rectus muscle was identified by following nipple line, as patient was too sore and weak to cough.
Abdomen was inspected in lying and sitting position (patient could not tolerate standing due to nausea). Care was taken to avoid creases and folds. Patient and family made aware that topography of abdomen may change after surgery and that surgeon
will make final determination of stoma placement. Patient and family state understanding and all questions answered. Will follow up with patient upon stoma creation. AJ Baum updated.
[2023-12-01] MEDS: CHLORASEPTIC/SORE THROAT SPRAY 1 SPRAY PO ×2 (17:00→21:02)
[2023-12-01 17:30] LABS: Glucose - Point of Care 110 mg/dl (70-99)
[2023-12-01 19:33] LABS: Glucose - Point of Care 115 mg/dl (70-99)
[2023-12-01 22:27] LABS: Glucose - Point of Care 142 mg/dl (70-99)
[2023-12-02] MEDS: LR IV ×2 (00:06→09:41)
[2023-12-02] MEDS: UNASYN IV ×2 (00:24→05:46)
[2023-12-02 03:00] VITALS: BP 141/77
[2023-12-02] MEDS: LR 1000 IV ×2 (04:16→14:04)
[2023-12-02 05:30] LABS: Glucose - Point of Care 138 mg/dl (70-99)
[2023-12-02 07:00] VITALS: BP 137/64
[2023-12-02 07:52] LABS: % Basophils 0.5 % (0-2); % Immature Granulocytes 0.9 % (0-0.5); % Lymphocytes 7.4 % (20.5-51.1); % Neutrophils 86.2 % (42.2-75.2); Absolute Immature Granulocytes 0.1 10^3/uL (0-0.05); Absolute Lymphocytes 0.6 10^3/uL (1.2-3.4); Absolute Monocytes 0.4 10^3/uL (0.1-0.6); Absolute Neutrophils 6.7 10^3/uL (1.4-6.5); Hematocrit 30.3 % (37.0-47.0); Hemoglobin 9.7 g/dL (12.0-16.0); Mean Corpuscular Volume 81.2 fL (81.0-99.0); Mean Platelet Volume 11.5 fL (7.4-10.4); Nucleated Red Blood Cells % 0 %; Platelet Count 218 10^3/uL (130-400); Red Blood Cell Count 3.73 10^6/uL (4.20-5.40); Red Cell Dist. Width 17.2 % (11.5-14.5); White Blood Cell Count 7.8 10^3/uL (4.8-10.8)
[2023-12-02] MEDS: CHLORASEPTIC/SORE THROAT SPRAY 1 SPRAY PO (08:13)
[2023-12-02] MEDS: PROTONIX IV 40 MG IV (08:13)
[2023-12-02] MEDS: NSS (PRESERVATIVE FREE) 10 ML IV (08:13)
[2023-12-02 08:19] LABS: Blood Urea Nitrogen 10 mg/dl (7-17); Calcium 8.9 mg/dl (8.4-10.2); Carbon Dioxide 29 mmol/L (22-30); Chloride 103 mmol/L (98-107); Estimated Creatinine Clearance 70 ml/min; Glucose 126 mg/dl (70-99); Potassium 3.8 mmol/L (3.5-5.1); Sodium 138 mmol/L (135-145); eGFR > 60.00
--- NOTE | 2023-12-02 09:18 | W.PN.GI.CBS2 ---
Today's Communication / Plan
-
See assessment and plan for details.
Assessment / Plan
-
1. Colonic obstruction: Likely secondary to malignancy, status post colonoscopy yesterday with biopsy and colonic stent, now decompressed with multiple bowel movements, much improved exam, no pain, x-ray with stent in place. At this point we will
DC NG tube, start clear liquid diet, continue observation and await pathology results. Colorectal surgery is following.
Subjective
Subjective
Date of Service: December 02, 2023
Patient feeling well, had multiple bowel movements after colonic stent yesterday, no abdominal pain, much less distended.
Objective
Data Reviewed
Laboratory Data:
Laboratory Results
12/02/23 06:45
12/02/23 06:44
Laboratory Results
PT 15.1 Sec (11.4-14.6) H 12/01/23 11:21
INR 1.21 12/01/23 11:21
Total Bilirubin 0.8 mg/dl (0.2-1.3) 11/30/23 09:55
AST 30 U/L (14-36) 11/30/23 09:55
ALT 15 U/L (0-35) 11/30/23 09:55
Alkaline Phosphatase 83 U/L (38-126) 11/30/23 09:55
Lipase 54 U/L (23-300) 11/30/23 09:55
Vital Signs and I&O:
Vital Signs
Temp Pulse Resp BP Pulse Ox
98 F 76 20 137/64 97
12/02/23 07:00 12/02/23 07:00 12/02/23 07:00 12/02/23 07:00 12/02/23 07:00
I&O
12/01/23 12/02/23 12/03/23
06:59 06:59 06:59
Intake Total 1320 / 1320 1190 / 1190
Output Total 250 / 250 0 / 0
Balance 1070 / 1070 1190 / 1190
Physical Exam
Physical Exam
General: NAD
Abdomen: normal bowel sounds, soft, no tenderness, no masses or bruits, no ascites
--- NOTE | 2023-12-02 10:22 | W.PN.HOSP.TC ---
Today's Communication/Plan
-
Resume home meds
Clear liquid diet
Check anemia labs
Assessment / Plan
Assessment / Plan
Gen-AAOx3, NAD, obese
HEENT-NC, AT, anicteric, clear oral mm
Neck-supple
CV-reg, no M, +S1/S2
Lungs-clear B/L
Abd-soft, NT, ND
Ext-no edema
Musculoskeletal-no cyanosis, clubbing
Skin-warm and dry
Neuro-grossly non-focal
Psych-calm, cooperative
Colonic obstruction -due to descending colon mass. Stricture noted on colonoscopy, stent placed. Biopsy done, pathology pending. NG tube removed. Clear liquid diet started. Awaiting colorectal surgery input.
Leukocytosis resolved. Afebrile. Can discontinue further antibiotics.
Hypokalemia -resolved.
Essential hypertension -stable. Was on lisinopril prior to admission. Can resume.
Normocytic anemia -likely acute and possibly related to hemodilution from IV fluids. Monitor CBC for now. Check anemia labs.
DM2 without hyperglycemia -was on metformin prior to admission. Hemoglobin A1c 6.3%. Glucoses are controlled.
Hyperlipidemia -on lovastatin.
Depression/anxiety -resume home meds.
Obesity due to excess calories
DNR
Family updated at the bedside.
Anticipated Discharge: 24 - 48 hours
Subjective/Interval History
-
Date of Service: December 02, 2023
Patient seen and examined. Complaining of sore throat related to NG tube. Denies abdominal pain or nausea.
Objective Data
-
Labs:
Laboratory Results
12/02/23 12/02/23
06:44 06:45
WBC 7.8
Hgb 9.7 L
Hct 30.3 L
Plt Count 218
Sodium 138
Potassium 3.8
Chloride 103
Carbon Dioxide 29
BUN 10
Creatinine 0.5 L
Glucose 126 H
Calcium 8.9
Vital Signs:
Vital Signs
Temp Pulse Resp BP Pulse Ox
98 F 76 20 137/64 97
12/02/23 07:00 12/02/23 07:00 12/02/23 07:00 12/02/23 07:00 12/02/23 08:00
I&O
12/01/23 12/02/23 12/03/23
06:59 06:59 06:59
Intake Total 1320 / 1320 1190 / 1190
Output Total 250 / 250 0 / 0
Balance 1070 / 1070 1190 / 1190
Review of Systems
-
History Source: Patient
All other systems: Reviewed and negative
[2023-12-02 10:29] LABS: Glucose - Point of Care 138 mg/dl (70-99)
[2023-12-02 11:00] VITALS: BP 134/54
[2023-12-02] MEDS: NOVOLOG FLEXPEN-LOW RESISTANCE SC ×2 (11:01→17:22)
[2023-12-02] MEDS: ZESTRIL 20 MG PO (11:13)
[2023-12-02] MEDS: CELEXA 20 MG PO (11:13)
[2023-12-02 11:22] LABS: Reticulocyte Count 1.8 % (0.4-2.8)
[2023-12-02 11:44] LABS: Iron 29 ug/dl (37-170)
[2023-12-02 11:55] LABS: Percent Saturation 8 % (20-50); Total Iron Binding Capacity 324 ug/dl (265-497)
--- NOTE | 2023-12-02 12:30 | W.PN.GS2 ---
Today's Communication / Plan
-
`
Assessment / Plan
-
Assessment: 88-year-old female presenting with partially obstructing proximal descending colon mass suspected underlying malignancy.
Postprocedure day #1 status post endoscopic stent placement/decompression with good results.
Plan: Continue to limit to liquid diet over the weekend to allow for colonic decompression
Await colonoscopic biopsy results
Check CEA
Colorectal surgery service will regroup with patient on Monday regarding further treatment recommendations
Subjective Data
-
Date of Service: December 02, 2023
Patient seen and examined.
Family members at bedside.
She states that she feels much better after undergoing endoscopic stent placement/decompression yesterday evening.
No abdominal pain
Numerous loose large bowel movements
Objective Data
-
Intake and Output
12/01/23 12/02/23 12/03/23
06:59 06:59 06:59
Intake Total 1320 / 1320 1190 / 1190
Output Total 250 / 250 0 / 0
Balance 1070 / 1070 1190 / 1190
Intake:
Oral fluids 600 / 600
IV fluids (Total) 1000 / 1000 100 / 100
Normosal 100 / 100
IV piggybacks 200 / 200 490 / 490
Amount instilled into GI Tube ( 120 / 120
Total)
[place] Sump 120 / 120
Output:
Gastrointestinal tube output ( 250 / 250 0 / 0
Total)
[place] Sump 250 / 250 0 / 0
Other:
Number of unmeasured voidings 3
Number of approximated SMALL 1
amounts of urine
Number of approximated MODERATE 1 2
amounts of urine
Number of unmeasured liquid
stools
Rectum 6
Vital Signs
Temp Pulse Resp BP Pulse Ox
98.1 F 77 18 125/59 98
12/02/23 11:00 12/02/23 11:00 12/02/23 11:00 12/02/23 11:13 12/02/23 11:00
Lab Results
12/02/23 06:45
12/02/23 06:44
Calcium 8.9 mg/dl (8.4-10.2) 12/02/23 06:44
Total Bilirubin 0.8 mg/dl (0.2-1.3) 11/30/23 09:55
AST 30 U/L (14-36) 11/30/23 09:55
ALT 15 U/L (0-35) 11/30/23 09:55
Alkaline Phosphatase 83 U/L (38-126) 11/30/23 09:55
Total Protein 7.0 g/dl (6.3-8.2) 11/30/23 09:55
Albumin 4.2 g/dl (3.5-5.0) 11/30/23 09:55
Physical Exam
-
NAD AAOx3
ABD: Softly protuberant, nontender on palpation, no rebound rigidity or guarding
[2023-12-02 12:44] LABS: Ferritin 7.7 ng/ml (11.1-264.0)
[2023-12-02 13:15] LABS: Folate > 20.0 ng/ml (2.76-20); Vitamin B12 985 pg/ml (239-931)
--- NOTE | 2023-12-02 14:14 | CM ---
Patient seen with son, reports no concerns to CM at this time. Per general surgery note, awaiting colonoscopic biopsy results. CM will continue to follow for discharge planning needs.
Plan; home no needs, watch for VN needs.
[2023-12-02 15:00] VITALS: BP 156/68
[2023-12-02 17:22] LABS: Glucose - Point of Care 103 mg/dl (70-99)
[2023-12-02] MEDS: MELATONIN 5 MG PO (21:18)
[2023-12-02 21:21] LABS: Glucose - Point of Care 108 mg/dl (70-99)
[2023-12-02 23:11] VITALS: BP 128/65
[2023-12-03] MEDS: LR 1000 IV (04:01)
[2023-12-03 06:50] LABS: % Basophils 0.9 % (0-2); % Eosinophils 6.4 % (0-6); % Immature Granulocytes 0.4 % (0-0.5); % Monocytes 8.5 % (1.7-9.3); % Neutrophils 70.8 % (42.2-75.2); Absolute Basophils 0.1 10^3/uL (0-0.2); Absolute Eosinophils 0.7 10^3/uL (0-0.7); Absolute Lymphocytes 1.4 10^3/uL (1.2-3.4); Absolute Monocytes 0.9 10^3/uL (0.1-0.6); Absolute Neutrophils 7.5 10^3/uL (1.4-6.5); Hematocrit 32.2 % (37.0-47.0); Hemoglobin 10.1 g/dL (12.0-16.0); Mean Corp Hgb Conc. 31.4 g/dL (33.0-37.0); Mean Corpuscular Volume 82.8 fL (81.0-99.0); Mean Platelet Volume 11.2 fL (7.4-10.4); Nucleated Red Blood Cells % 0 %; Platelet Count 246 10^3/uL (130-400); Red Blood Cell Count 3.89 10^6/uL (4.20-5.40); Red Cell Dist. Width 17.4 % (11.5-14.5); White Blood Cell Count 10.6 10^3/uL (4.8-10.8)
[2023-12-03 07:00] VITALS: BP 138/72
[2023-12-03 07:41] LABS: CEA 16.2 ng/ml
[2023-12-03] MEDS: NSS (PRESERVATIVE FREE) 10 ML IV (08:23)
[2023-12-03] MEDS: PROTONIX IV 40 MG IV (08:23)
[2023-12-03 08:24] LABS: Glucose - Point of Care 117 mg/dl (70-99)
[2023-12-03] MEDS: NOVOLOG FLEXPEN-LOW RESISTANCE SC ×3 (08:33→16:29)
--- NOTE | 2023-12-03 08:56 | W.PN.GI.CBS2 ---
Today's Communication / Plan
-
See assessment and plan for details.
Assessment / Plan
-
1. Colonic obstruction: Likely secondary to malignancy, status post colonoscopy with biopsy and colonic stent, now decompressed with multiple bowel movements, much improved exam, no pain, x-ray with stent in place. Her exam remains benign, still
having bowel movements, though given her nausea we will continue clears for today. Await final pathology results, colorectal surgery following.
Subjective
Subjective
Date of Service: December 03, 2023
Patient with some mild nausea today, though no vomiting, still having significant bowel movements, no fever or chills.
Objective
Data Reviewed
Laboratory Data:
Laboratory Results
12/03/23 06:26
12/02/23 06:44
Laboratory Results
PT 15.1 Sec (11.4-14.6) H 12/01/23 11:21
INR 1.21 12/01/23 11:21
Total Bilirubin 0.8 mg/dl (0.2-1.3) 11/30/23 09:55
AST 30 U/L (14-36) 11/30/23 09:55
ALT 15 U/L (0-35) 11/30/23 09:55
Alkaline Phosphatase 83 U/L (38-126) 11/30/23 09:55
Lipase 54 U/L (23-300) 11/30/23 09:55
Vital Signs and I&O:
Vital Signs
Temp Pulse Resp BP Pulse Ox
97.9 F 81 16 138/72 95
12/03/23 07:00 12/03/23 07:00 12/03/23 07:00 12/03/23 07:00 12/03/23 07:00
I&O
12/02/23 12/03/23 12/04/23
06:59 06:59 06:59
Intake Total 1190 / 1190 1765 / 1765
Output Total 0 / 0
Balance 1190 / 1190 1764
Physical Exam
Physical Exam
General: NAD
Abdomen: normal bowel sounds, soft, no tenderness, no masses or bruits, no ascites
[2023-12-03] MEDS: CELEXA 20 MG PO (09:52)
[2023-12-03] MEDS: CLARITIN 10 MG PO (09:52)
[2023-12-03] MEDS: ZESTRIL 20 MG PO (09:52)
[2023-12-03] MEDS: LIPITOR 10 MG PO (09:52)
--- NOTE | 2023-12-03 10:10 | W.PN.HOSP.TC ---
Today's Communication/Plan
-
Continue current care
Assessment / Plan
Assessment / Plan
Gen-AAOx3, NAD, obese
HEENT-NC, AT, anicteric, clear oral mm
Neck-supple
CV-reg, no M, +S1/S2
Lungs-clear B/L
Abd-soft, NT, ND
Ext-no edema
Musculoskeletal-no cyanosis, clubbing
Skin-warm and dry
Neuro-grossly non-focal
Psych-calm, cooperative
Colonic obstruction -due to descending colon mass. Stricture noted on colonoscopy, stent placed. Biopsy done, pathology pending. NG tube removed. Clear liquid diet started. Awaiting colorectal surgery input.
Leukocytosis resolved. Afebrile.
Hypokalemia -resolved.
Essential hypertension -stable. Was on lisinopril prior to admission. Can resume.
Normocytic anemia -due to iron deficiency due to GI blood loss from colonic mass. Hemoglobin stable.
DM2 without hyperglycemia -was on metformin prior to admission. Hemoglobin A1c 6.3%. Glucoses are controlled.
Hyperlipidemia -on lovastatin.
Depression/anxiety -resume home meds.
Obesity due to excess calories
DNR
Family updated at the bedside.
Anticipated Discharge: > 48 hours
Subjective/Interval History
-
Date of Service: December 03, 2023
Patient seen and examined. No new complaints. Feeling better overall.
Objective Data
-
Labs:
Laboratory Results
12/03/23
06:26
WBC 10.6
Hgb 10.1 L
Hct 32.2 L
Plt Count 246
Vital Signs:
Vital Signs
Temp Pulse Resp BP Pulse Ox
97.9 F 81 16 138/72 95
12/03/23 07:00 12/03/23 07:00 12/03/23 07:00 12/03/23 07:00 12/03/23 07:00
I&O
12/02/23 12/03/23 12/04/23
06:59 06:59 06:59
Intake Total 1190 / 1190 1765 / 1765
Output Total 0 / 0
Balance 1190 / 1190 1765 / 1765
Review of Systems
-
History Source: Patient
All other systems: Reviewed and negative
[2023-12-03 12:08] LABS: Glucose - Point of Care 120 mg/dl (70-99)
[2023-12-03 14:33] VITALS: BMI 33.7
[2023-12-03 15:00] VITALS: BP 149/67
[2023-12-03 15:45] VITALS: BP 149/67
[2023-12-03 16:28] LABS: Glucose - Point of Care 109 mg/dl (70-99)
[2023-12-03] MEDS: MELATONIN 5 MG PO (20:52)
[2023-12-03] MEDS: TYLENOL 650 MG PO (20:52)
[2023-12-03 21:12] LABS: Glucose - Point of Care 98 mg/dl (70-99)
[2023-12-03 23:00] VITALS: BP 128/56
--- NOTE | 2023-12-04 06:32 | W.PN.GI.CBS2 ---
Today's Communication / Plan
-
See assessment and plan for details.
Assessment / Plan
-
1. Colonic obstruction: Likely secondary to malignancy, status post colonoscopy with biopsy and colonic stent, now decompressed with multiple bowel movements, much improved exam, no pain, x-ray with stent in place. Her exam remains benign, still
having bowel movements. Will advance to full liquid diet, with continued supportive care and slowly advance as per stent instructions on her chart. Will follow-up on pathology results, though colorectal surgery following.
Will sign off for now, please go back with any further questions.
Subjective
Subjective
Date of Service: December 04, 2023
Patient feeling well overall, some cough this morning, though no abdominal pain, nausea or vomiting, tolerated clears without difficulty, still having bowel movements.
Objective
Data Reviewed
Laboratory Data:
Laboratory Results
PT 15.1 Sec (11.4-14.6) H 12/01/23 11:21
INR 1.21 12/01/23 11:21
Total Bilirubin 0.8 mg/dl (0.2-1.3) 11/30/23 09:55
AST 30 U/L (14-36) 11/30/23 09:55
ALT 15 U/L (0-35) 11/30/23 09:55
Alkaline Phosphatase 83 U/L (38-126) 11/30/23 09:55
Lipase 54 U/L (23-300) 11/30/23 09:55
Vital Signs and I&O:
Vital Signs
Temp Pulse Resp BP Pulse Ox
97.9 F 64 12 128/56 93
12/03/23 23:00 12/03/23 23:00 12/03/23 23:00 12/03/23 23:00 12/04/23 02:29
I&O
12/02/23 12/03/23 12/04/23
06:59 06:59 06:59
Intake Total 1190 / 1190 1765 / 1765 1380 / 1380
Output Total 0 / 0
Balance 1190 / 1190 1765 / 1765 1380 / 1380
Physical Exam
Physical Exam
General: NAD
Abdomen: normal bowel sounds, soft, no tenderness, no masses or bruits, no ascites
[2023-12-04 07:19] LABS: % Basophils 0.9 % (0-2); % Eosinophils 8.1 % (0-6); % Immature Granulocytes 0.4 % (0-0.5); % Lymphocytes 15.2 % (20.5-51.1); % Monocytes 9.4 % (1.7-9.3); Absolute Basophils 0.1 10^3/uL (0-0.2); Absolute Eosinophils 0.6 10^3/uL (0-0.7); Absolute Monocytes 0.6 10^3/uL (0.1-0.6); Absolute Neutrophils 4.5 10^3/uL (1.4-6.5); Hematocrit 30.3 % (37.0-47.0); Hemoglobin 9.4 g/dL (12.0-16.0); Mean Corpuscular Hgb 25.8 pg (27.0-31.0); Mean Platelet Volume 11.2 fL (7.4-10.4); Nucleated Red Blood Cells % 0 %; Platelet Count 215 10^3/uL (130-400); Red Blood Cell Count 3.65 10^6/uL (4.20-5.40); Red Cell Dist. Width 17.4 % (11.5-14.5); White Blood Cell Count 6.8 10^3/uL (4.8-10.8)
[2023-12-04 07:31] LABS: Glucose - Point of Care 101 mg/dl (70-99)
[2023-12-04 07:34] VITALS: BP 135/60
[2023-12-04 07:43] LABS: ALT (SGPT) 15 U/L (0-35); AST (SGOT) 31 U/L (14-36); Albumin 2.7 g/dl (3.5-5.0); Alkaline Phosphatase 62 U/L (38-126); Blood Urea Nitrogen 5 mg/dl (7-17); Calcium 8.4 mg/dl (8.4-10.2); Carbon Dioxide 31 mmol/L (22-30); Chloride 105 mmol/L (98-107); Estimated Creatinine Clearance 70 ml/min; Glucose 97 mg/dl (70-99); Sodium 137 mmol/L (135-145); Total Bilirubin 0.5 mg/dl (0.2-1.3); Total Protein 4.7 g/dl (6.3-8.2); eGFR > 60.00
[2023-12-04] MEDS: NOVOLOG FLEXPEN-LOW RESISTANCE SC ×3 (07:44→16:34)
[2023-12-04] MEDS: ZESTRIL 20 MG PO (08:31)
[2023-12-04] MEDS: CELEXA 20 MG PO (08:31)
[2023-12-04] MEDS: CLARITIN 10 MG PO (08:31)
[2023-12-04] MEDS: LIPITOR 10 MG PO (08:31)
[2023-12-04] MEDS: PROTONIX IV 40 MG IV (08:31)
[2023-12-04] MEDS: NSS (PRESERVATIVE FREE) 10 ML IV (08:32)
--- NOTE | 2023-12-04 11:25 | W.PN.HOSP.TC ---
Today's Communication/Plan
-
replete kcl
path pending
Await CRS input
PT/OT eval
Assessment / Plan
Assessment / Plan
Gen-AAOx3, NAD, obese
HEENT-NC, AT, anicteric, clear oral mm
Neck-supple
CV-reg, no M, +S1/S2
Lungs-clear B/L
Abd-soft, NT, ND
Ext-no edema
Musculoskeletal-no cyanosis, clubbing
Skin-warm and dry
Neuro-grossly non-focal
Psych-calm, cooperative
Colonic obstruction -due to descending colon mass. Stricture noted on colonoscopy, stent placed. Biopsy done, pathology pending. NG tube removed. Diet advanced to full liquids. Awaiting colorectal surgery input.
Leukocytosis resolved. Afebrile.
Hypokalemia -replete/monitor
Essential hypertension -stable. Was on lisinopril prior to admission. Can resume.
Normocytic anemia -due to iron deficiency due to GI blood loss from colonic mass. Hemoglobin stable.
DM2 without hyperglycemia -was on metformin prior to admission. Hemoglobin A1c 6.3%. Glucoses are controlled.
Hyperlipidemia -on lovastatin.
Depression/anxiety -resume home meds.
Obesity due to excess calories
DNR
Family updated at the bedside in details.
Anticipated Discharge: Within 24 hours
Subjective/Interval History
-
Date of Service: December 04, 2023
Denies abdominal pain
Having multiple liquidy bowel movements
Objective Data
-
Labs:
Laboratory Results
12/04/23
06:47
WBC 6.8
Hgb 9.4 L
Hct 30.3 L
Plt Count 215
Sodium 137
Potassium 3.0 L
Chloride 105
Carbon Dioxide 31 H
BUN 5 L
Creatinine 0.5 L
Glucose 97
Calcium 8.4
Total Bilirubin 0.5
AST 31
ALT 15
Alkaline Phosphatase 62
Vital Signs:
Vital Signs
Temp Pulse Resp BP Pulse Ox
98.1 F 63 16 135/60 95
12/04/23 07:34 12/04/23 07:34 12/04/23 07:34 12/04/23 07:34 12/04/23 08:40
I&O
12/03/23 12/04/23 12/05/23
06:59 06:59 06:59
Intake Total 1765 / 1765 1380 / 1380
Balance 1765 / 1765 1380 / 1380
Data Reviewed
-
Total Time Spent with Patient (in minutes): 55
[2023-12-04 11:42] LABS: Glucose - Point of Care 138 mg/dl (70-99)
[2023-12-04] MEDS: KCL 270 MEQ IV (11:56)
[2023-12-04] MEDS: KCL ELIXIR 20 MEQ PO (11:57)
--- NOTE | 2023-12-04 12:04 | W.PN.CRS1 ---
Today's Communication / Plan
-
full liquids
CT chest
await path
Assessment/Plan
-
Assessment: 88-year-old female presenting with partially obstructing proximal descending colon mass suspected underlying malignancy.
Postprocedure day #3 status post endoscopic stent placement/decompression with good results.
Plan:
1. Full liquid diet per GI.
2. Await colonoscopic biopsy results, I called pathology to put an expedite on it.
3. CEA is 16.2.
4. She will need a CT chest for staging purposes.
5. OR plan to follow.
Subjective Data
Subjective Data
Date of Service: December 04, 2023
Patient states she feels well today. She is less distended. She is having loose bowel movements. She denies nausea or vomiting.
Objective Data
-
Vital Signs
Temp Pulse Resp BP Pulse Ox
98.1 F 63 16 135/60 95
12/04/23 07:34 12/04/23 07:34 12/04/23 07:34 12/04/23 07:34 12/04/23 08:40
Intake & Output
12/03/23 12/04/23 12/05/23
06:59 06:59 06:59
Intake Total 1765 / 1765 1380 / 1380
Balance 1765 / 1765 1380 / 1380
Intake:
Oral fluids 690 / 690 480 / 480
IV fluids (Total) 1075 / 1075 900 / 900
Other:
Number of approximated MODERATE 1 1
amounts of urine
Number of approximated LARGE 2
amounts of urine
How many times incontinent 2
MODERATE amount urine
Lab Results
12/04/23 06:47
12/04/23 06:47
Physical Exam
-
General: No Acute Distress and AOx3
Abdomen: Soft, Non Distended and Non Tender
Skin: Warm and Dry
--- NOTE | 2023-12-04 12:07 | CM ---
Patient seen bedside, reports her daughter will be here later if CM can return then. CM will watch for PT/OT evaluations, will return to discuss recommendations. CM will continue to follow for discharge planning needs.
Plan; watch PT/OT evals for further recommendations.
[2023-12-04 15:16] VITALS: BP 139/59
[2023-12-04 16:30] LABS: Glucose - Point of Care 119 mg/dl (70-99)
[2023-12-04] MEDS: LOVENOX 40 MG SC (17:05)
[2023-12-04] MEDS: TYLENOL 650 MG PO (20:14)
[2023-12-04 21:19] LABS: Glucose - Point of Care 128 mg/dl (70-99)
[2023-12-04] MEDS: MELATONIN 5 MG PO (22:55)
[2023-12-04 23:01] VITALS: BP 133/68
[2023-12-05 07:50] LABS: Glucose - Point of Care 133 mg/dl (70-99)
[2023-12-05 07:54] VITALS: BP 146/73
[2023-12-05] MEDS: NOVOLOG FLEXPEN-LOW RESISTANCE SC ×2 (08:01→16:46)
[2023-12-05] MEDS: ZESTRIL 20 MG PO (08:02)
[2023-12-05] MEDS: LIPITOR 10 MG PO (08:02)
[2023-12-05] MEDS: NSS (PRESERVATIVE FREE) 10 ML IV (08:02)
[2023-12-05] MEDS: PROTONIX IV 40 MG IV (08:02)
[2023-12-05] MEDS: CELEXA 20 MG PO (08:02)
[2023-12-05] MEDS: CLARITIN 10 MG PO (08:02)
[2023-12-05 08:57] LABS: Blood Urea Nitrogen 3 mg/dl (7-17); Calcium 8.5 mg/dl (8.4-10.2); Carbon Dioxide 31 mmol/L (22-30); Chloride 104 mmol/L (98-107); Estimated Creatinine Clearance 70 ml/min; Glucose 110 mg/dl (70-99); Magnesium 1.5 mg/dl (1.6-2.3); Potassium 3.2 mmol/L (3.5-5.1); Sodium 138 mmol/L (135-145); eGFR > 60.00
--- NOTE | 2023-12-05 10:27 | W.PN.HOSP.TC ---
Today's Communication/Plan
-
replete k and mag
CRS recs
advance diet
Assessment / Plan
Assessment / Plan
Gen-AAOx3, NAD, obese
HEENT-NC, AT, anicteric, clear oral mm
Neck-supple
CV-reg, no M, +S1/S2
Lungs-clear B/L
Abd-soft, NT, ND
Ext-no edema
Musculoskeletal-no cyanosis, clubbing
Skin-warm and dry
Neuro-grossly non-focal
Psych-calm, cooperative
Colonic obstruction -due to descending colon mass. Stricture noted on colonoscopy, stent placed. Biopsy done, pathology pending. NG tube removed. Diet advanced to full liquids. CT chest for staging-negative. Possibly advance to LR diet and DC
home? Awaiting colorectal surgery input.
Leukocytosis resolved. Afebrile.
Hypokalemia -replete/monitor
Hypomagnesemia-replete/monitor
Essential hypertension -stable. Was on lisinopril prior to admission. Can resume.
Normocytic anemia -due to iron deficiency due to GI blood loss from colonic mass. Hemoglobin stable.
DM2 without hyperglycemia -was on metformin prior to admission. Hemoglobin A1c 6.3%. Glucoses are controlled.
Hyperlipidemia -on lovastatin.
Depression/anxiety -resume home meds.
Obesity due to excess calories
DNR
Family updated at the bedside in details.
Anticipated Discharge: Within 24 hours
Subjective/Interval History
-
Date of Service: December 05, 2023
feeling better
tolerating liquid diet
denies abd pain
Objective Data
-
Labs:
Laboratory Results
12/05/23
06:30
Sodium 138
Potassium 3.2 L
Chloride 104
Carbon Dioxide 31 H
BUN 3 L
Creatinine 0.4 L
Glucose 110 H
Calcium 8.5
Vital Signs:
Vital Signs
Temp Pulse Resp BP Pulse Ox
98.7 F 67 16 146/73 100
12/05/23 07:54 12/05/23 07:54 12/05/23 07:54 12/05/23 07:54 12/05/23 07:55
I&O
12/04/23 12/05/23 12/06/23
06:59 06:59 06:59
Intake Total 1380 / 1380 2550 / 2550
Balance 1380 / 1380 2550 / 2550
[2023-12-05] MEDS: KCL 270 MEQ IV (10:51)
[2023-12-05] MEDS: KCL ELIXIR 20 MEQ PO (10:52)
[2023-12-05 11:26] LABS: Glucose - Point of Care 171 mg/dl (70-99)
--- NOTE | 2023-12-05 11:32 | W.PN.CRS1 ---
Today's Communication / Plan
-
Low residue
Cardiology consult
Discharge after cardiac workup and tolerating low residue diet.
Assessment/Plan
-
Assessment: 88-year-old female presenting with partially obstructing proximal descending colon mass suspected underlying malignancy.
Postprocedure day # 4 status post endoscopic stent placement/decompression with good results.
Plan:
1. Advance diet to a low residue diet. We advised her to eat slowly and keep her stools on the more softer side.
2. Await colonoscopic biopsy results, I called pathology to put an expedite on it yesterday. Results are still pending.
3. CEA is 16.2.
4. CT of the chest performed yesterday, no malignancy noted. Discussed with family.
5. Recommend cardiology consult prior to discharge for preop risk stratification.
6. Okay for discharge from our perspective either later today or tomorrow if tolerating a low residue diet and seen by cardiology. She will need to follow-up with Dr. Mendieta next week for surgical planning. Discussed with hospitalist.
Subjective Data
Subjective Data
Date of Service: December 05, 2023
Patient states that she is feeling well today. She has no nausea. She denies abdominal pain. She is having formed bowel movements. She does not feel that bloated. She is not as distended.
Objective Data
-
Vital Signs
Temp Pulse Resp BP Pulse Ox
98.7 F 67 16 146/73 100
12/05/23 07:54 12/05/23 07:54 12/05/23 07:54 12/05/23 07:54 12/05/23 07:55
Intake & Output
12/04/23 12/05/23 12/06/23
06:59 06:59 06:59
Intake Total 1380 / 1380 2550 / 2550
Balance 1380 / 1380 2550 / 2550
Intake:
Oral fluids 480 / 480 2280 / 2280
IV fluids (Total) 900 / 900
IV piggybacks 270 / 270
Other:
Number of approximated MODERATE 1 1
amounts of urine
Number of approximated LARGE 2 4
amounts of urine
Lab Results
12/04/23 06:47
12/05/23 06:30
Physical Exam
-
General: No Acute Distress and AOx3
Abdomen: Soft, Distended (Mild, much improved) and Non Tender
Skin: Warm and Dry
[2023-12-05] MEDS: NOVOLOG FLEXPEN-LOW RESISTANCE 1 UNITS SC (12:03)
[2023-12-05 13:10] VITALS: BP 109/74; PULSE 68
--- NOTE | 2023-12-05 13:49 | CON.CAR ---
Addendum entered and electronically signed by Woo Luna DO 12/05/23 21:20:
I saw and examined the patient.
The Administrative And Program Specialist's note was reviewed and I agree with the note.
Comment:
Echo and EKG reviewed and stable.
She has no complaints.
She appears compensated from a cardiac standpoint for surgery.
She needs surgery given cancer.
She is moderate but acceptable risk for surgery as she is compensated.
Will arrange outpt cardiac follow up.
Please recall if needed
Original Note:
Consultation
Consultation Request
Date/Time Consultation Requested: 12/05/23
Date/Time Consultation Performed: 12/05/23
Requesting Provider: Dr. Robertson
Performing Provider: Dr. Luna
Reason for Consultation: Pre-op cardiovascular risk stratification for planned outpatient surgery
Medical History
-
History of Present Illness:
Patient came to [facility] last with abdominal pain and was admitted with an obstructing colon mass and cardiology has been consulted for pre-operative risk stratification. Patient lives in an in-law suite at her son's home. She has had weight
loss, decreased appetite and abdominal pain for about a month. Patient was seen by CRS in office 11/15/23 and started on Zofran which seemed to help. Then symptoms recurred and patient came to [facility] and had a CT that revealed a large bowel mass
followed by sigmoidoscopy that showed a partially obstructing descending colon mass that was stented. Following stent 12/02/23 patient has been moving bowels and feels better. CRS is recommend colon surgery and cardiology is asked to risk stratify.
Patient ambulates with a walked and fatigues around 100 ft. No chest pain or SOB. No resting pain or SOB. Patient has never seen a vamp strap ironer before, but had an adenosine nuclear stress test in 2006 as noted above.
PMH:
HTN
Hyperlipidemia
Obese
Past Medical History
Past Medical History: Other (in HPI)
Past Surgical History: Gynecological (hysterectomy)
Social History
Tobacco: Non-Smoker
Alcohol: None
Drug: None
Living: With Family (she lives alone in a in-law suite at her son's home)
Family History
Family History: Diabetes
Allergies / Home Medications
Allergy/AdvReac Type Severity Reaction Status Date / Time
No Known Allergies Allergy Verified 11/30/23 07:25
�Medication �Instructions �Recorded �Confirmed �Type
alpha lipoic acid 300 mg capsule 300 mg PO Daily Supplement 06/22/18 11/30/23 History
aspirin 325 mg tablet,delayed 325 mg PO DAILY Blood Clot 06/22/18 11/30/23 History
release Prevention/Tx
citalopram 20 mg tablet 20 mg PO DAILY Mental 06/22/18 11/30/23 History
Health/Anxiety
lisinopril 20 mg tablet 20 mg PO DAILY Blood Pressure 06/22/18 11/30/23 History
lorazepam 0.5 mg tablet 0.5 mg PO DAILYPRN PRN ANXIETY 06/22/18 11/30/23 History
metformin 500 mg tablet 500 mg PO DAILY Diabetes 06/22/18 11/30/23 History
multivitamin with folic acid 400 1 tab PO DAILY Supplement 06/22/18 11/30/23 History
mcg tablet (Tab-A-Jerica)
acetaminophen 325 mg tablet 325 mg PO Q4HPRN PRN if temp > 101 06/25/18 11/30/23 Rx
F/ mild pain ##30
loratadine 10 mg tablet 10 mg PO DAILY Allergies 11/30/23 11/30/23 History
lovastatin 20 mg tablet 20 mg PO DAILY High Cholesterol 11/30/23 11/30/23 History
Review of Systems
-
History Source: Patient and Family (daughter bedside)
All other systems: Negative unless noted
Physical Exam
Vital Signs
Temp Pulse Resp BP Pulse Ox
98.7 F 67 16 146/73 100
12/05/23 07:54 12/05/23 07:54 12/05/23 07:54 12/05/23 07:54 12/05/23 07:55
GEN: NAD. AAOx3
HEENT: EOMI, MMM
LUNGS: CTA B/L, no wheezes or rales
CV: Reg, 2/6 syst LSB
ABD: soft, BS+, NT, ND
EXT: No clubbing, cyanosis, lesions or edema B/L
NEURO: Gross non-focal
SKIN: Warm, dry and pink. No rash
Lab Results
12/04/23 06:47
12/05/23 06:30
Impression / Plan
-
PCP: Teodora ARCOS
Cardiology: None prior to admission
Impression:
Admitted with weight loss, abdominal pain and colon mass 11/30/23
Partial obstructive descending colon mass s/p colon stent 12/02/23
Cardiac murmur
HTN
Hypokalemia
Hypomagnesemia
Hyperlipidemia
Obese
Adenosine nuclear stress test 04/11/07: small predominantly fixed defect apical segment consistent with infarction with residual ischemia or soft tissue attenuation, EF 66%
Echo 12/05/23: Study pending
Plan:
-Patient came to [facility] last with abdominal pain and was admitted with an obstructing colon mass and cardiology has been consulted for pre-operative risk stratification. Patient lives in an in-law suite at her son's home. She has had weight
loss, decreased appetite and abdominal pain for about a month. Patient was seen by PCP in office 11/15/23 and started on Zofran which seemed to help. Then symptoms recurred and patient came to [facility] and had a CT that revealed a large bowel mass
followed by sigmoidoscopy that showed a partially obstructing descending colon mass that was stented. Following stent 12/02/23 patient has been moving bowels and feels better. CRS is recommend colon surgery and cardiology is asked to risk stratify.
Patient ambulates with a walked and fatigues around 100 ft. No chest pain or SOB. No resting pain or SOB. Patient has never seen a vamp strap ironer before, but had an adenosine nuclear stress test in 2006 as noted above.
-Check ECG
-Check echo
-Patient with murmur on echo, no previous mention of murmur. Await echo results
-Outpatient dose of lisinopril 20 mg daily has been continued and BP is marginally controlled.
-Patient taking aspirin 325 mg daily prior to admission without h/o CAD. Recommend at least reducing to 81 mg daily or consider stopping.
[2023-12-05 14:41] VITALS: BP 143/83; PULSE 63; O2SAT 95
--- NOTE | 2023-12-05 15:20 | CM ---
Patient seen bedside, leaving room for procedure. CM spoke with patients daughter, Melani Huerta [phone]. CM discussed PT recommendations of home health, daughter agreeable and requesting [employer] [facility], reports her father had [facility] in past. Melani
provided CM with her sisters number in case she is not available, Areli Jurado [phone]. Daughter reports patient will be back in a week or so for surgery, CM reports patient can still work with [employer] and can continue once discharged from the
hospital after surgery. TT sent to Hospitalist for VN order. CM will continue to follow for discharge planning needs.
Plan; home with [employer] and family support.
[2023-12-05 15:37] VITALS: BP 143/55
[2023-12-05] MEDS: MAGNESIUM SULFATE 100 IV (16:09)
[2023-12-05 16:45] LABS: Glucose - Point of Care 114 mg/dl (70-99)
[2023-12-05] MEDS: APRESOLINE 5 MG IV (17:03)
[2023-12-05] MEDS: LOVENOX 40 MG SC (17:03)
[2023-12-05 18:20] VITALS: BP 118/50
--- NOTE | 2023-12-05 18:31 | PTCARENOTE ---
Pt's B/P's today 146/73 and 143/55 after receiving usual B/P med in am. Hydralazine 5mg IV prn given and B/P now 118/50.
[2023-12-05 21:39] LABS: Glucose - Point of Care 143 mg/dl (70-99)
[2023-12-05] MEDS: MELATONIN 5 MG PO (22:04)
[2023-12-05 23:23] VITALS: BP 132/50
[2023-12-06 07:05] VITALS: BP 102/71
[2023-12-06 07:07] LABS: Glucose - Point of Care 118 mg/dl (70-99)
[2023-12-06 08:33] LABS: Blood Urea Nitrogen 5 mg/dl (7-17); Calcium 8.3 mg/dl (8.4-10.2); Carbon Dioxide 31 mmol/L (22-30); Chloride 102 mmol/L (98-107); Estimated Creatinine Clearance 70 ml/min; Glucose 112 mg/dl (70-99); Potassium 3.6 mmol/L (3.5-5.1); Sodium 137 mmol/L (135-145); eGFR > 60.00
--- NOTE | 2023-12-06 09:00 | W.PN.CRS1 ---
Today's Communication / Plan
-
continue LR diet
okay for d/c from our perspective
Assessment/Plan
-
Assessment: 88-year-old female presenting with partially obstructing proximal descending colon mass suspected underlying malignancy.
Postprocedure day #5 status post endoscopic stent placement/decompression with good results.
Plan:
1. Continue low residue diet. We advised her to eat slowly and keep her stools on the more softer side.
2. Pathology reveals invasive adenocarcinoma. This was discussed with son and patient at bedside.
3. CEA is 16.2.
4. CT of the chest shows no malignancy noted. Discussed with family on 12/05/23.
5. Appreciate cardiology.
6. Okay for discharge from our perspective. She will need to follow-up with Dr. Mendieta next week for surgical planning. She will need to remain on a low residue diet. Discussed with hospitalist.
Subjective Data
Subjective Data
Date of Service: December 06, 2023
Patient states she has no nausea/vomiting. She is tolerating a diet. She has flatus. She is feeling up for going home.
Objective Data
-
Vital Signs
Temp Pulse Resp BP Pulse Ox
98.7 F 81 16 102/71 94
12/06/23 07:05 12/06/23 07:05 12/06/23 07:05 12/06/23 07:05 12/06/23 07:05
Intake & Output
12/05/23 12/06/23 12/07/23
06:59 06:59 06:59
Intake Total 2550 / 2550 1989
Balance 2550 / 2550 1989
Intake:
Oral fluids 2280 / 2280 1620 / 1620
IV piggybacks 270 / 270 370 / 370
Other:
Number of approximated MODERATE 1 5
amounts of urine
Number of approximated LARGE 4
amounts of urine
Lab Results
12/04/23 06:47
12/06/23 06:49
Physical Exam
-
General: No Acute Distress and AOx3
Abdomen: Soft, Non Distended and Non Tender
Skin: Warm and Dry
[2023-12-06] MEDS: NOVOLOG FLEXPEN-LOW RESISTANCE SC ×2 (09:32→13:12)
[2023-12-06] MEDS: CELEXA 20 MG PO (09:33)
[2023-12-06] MEDS: CLARITIN 10 MG PO (09:33)
[2023-12-06] MEDS: ZESTRIL 20 MG PO (09:33)
[2023-12-06] MEDS: LIPITOR 10 MG PO (09:34)
[2023-12-06] MEDS: NSS (PRESERVATIVE FREE) 10 ML IV (09:34)
[2023-12-06] MEDS: ASPIRIN ENTERIC COATED 325 MG PO (09:34)
[2023-12-06] MEDS: PROTONIX IV 40 MG IV (09:35)
--- NOTE | 2023-12-06 10:36 | W.PN.HOSP.TC ---
Today's Communication/Plan
-
DC home
Outpatient surgery follow-up
Assessment / Plan
Assessment / Plan
Gen-AAOx3, NAD, obese
HEENT-NC, AT, anicteric, clear oral mm
Neck-supple
CV-reg, no M, +S1/S2
Lungs-clear B/L
Abd-soft, NT, ND
Ext-no edema
Musculoskeletal-no cyanosis, clubbing
Skin-warm and dry
Neuro-grossly non-focal
Psych-calm, cooperative
Colonic obstruction -due to descending colon mass. Stricture noted on colonoscopy, stent placed. Biopsy resulted with invasive adenocarcinoma. Signed and patient was informed.. NG tube removed. Patient tolerating low residue diet.. CT chest for
staging-negative. Plan for outpatient surgery. Patient received cardiology preop risk stratification per surgery.
Leukocytosis resolved. Afebrile.
Hypokalemia -replete/monitor
Hypomagnesemia-replete/monitor
Essential hypertension -stable. Was on lisinopril prior to admission. Can resume.
Normocytic anemia -due to iron deficiency due to GI blood loss from colonic mass. Hemoglobin stable.
DM2 without hyperglycemia -was on metformin prior to admission. Hemoglobin A1c 6.3%. Glucoses are controlled.
Hyperlipidemia -on lovastatin.
Depression/anxiety -resume home meds.
Obesity due to excess calories
DNR
Son updated at bedside in details.
More than 30 minutes spent in discharge including
Final examination of the patient
Summarizing hospital stay
Instructions for continuing care to all relevant caregivers
Preparation of discharge records, prescriptions, and referral forms
Total time spent (in minutes): 52
Anticipated Discharge: Today
Subjective/Interval History
-
Date of Service: December 06, 2023
Feeling better
Tolerating diet
Having bowel movements
Objective Data
-
Labs:
Laboratory Results
12/06/23
06:49
Sodium 137
Potassium 3.6
Chloride 102
Carbon Dioxide 31 H
BUN 5 L
Creatinine 0.4 L
Glucose 112 H
Calcium 8.3 L
Vital Signs:
Vital Signs
Temp Pulse Resp BP Pulse Ox
98.7 F 71 16 136/64 94
12/06/23 07:05 12/06/23 09:33 12/06/23 07:05 12/06/23 09:33 12/06/23 07:05
I&O
12/05/23 12/06/23 12/07/23
06:59 06:59 06:59
Intake Total 2550 / 2550 1989
Balance 2550 / 2550 1989
--- NOTE | 2023-12-06 10:40 | W.DCSUMMARY ---
Discharge Summary
Discharge Data
Date of Admission: 11/30/23
Date of Discharge: 12/06/23
-
Pending Results: No
Hospital Course
88 yo female past medical history of diabetes, anemia, hypertension, depression, hyperlipidemia who is presented with abdominal pain nausea vomiting. Patient with CT abdomen pelvis Findings suspicious for approximate 3 cm partially obstructing
mass/malignancy in the proximal descending colon with some accompanying small adjacent mesenteric lymph nodes. Stricture with inflammation would be less likely. No free air. Patient was eval by gastroenterology and colorectal surgeon. Patient
underwent colonic stent. Post colonic stent patient with significant improvement. Nausea vomiting resolved. Patient was having bowel movements. Liquid diet was advanced to low residue diet. Patient CEA 14. CT chest negative for metastasis.
Patient biopsy was expedited per colorectal surgery which was also consistent with adenocarcinoma moderately differentiated. Patient was also seen by cardiology for preop risk stratification. Patient will follow-up outpatient colorectal surgery
for surgery.
Discharge Plan
-
Patient Disposition: Home with Home Care
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
Invasive adenocarcinoma
Hypokalemia
Hypomagnesemia
Condition: Fair
Diet: Low Fiber and Low Residue
Activity: With assistance and As tolerated
Driving Restrictions: As prior to admission
Other Services: VN
Instructions: Low Fiber Diet
Referrals:
Teodora Fraser PA-C [Family Provider] -
Bartolome Mendieta MD [Active] - in one week
Prescriptions:
Continued
citalopram 20 MG tablet
20 mg PO DAILY
metformin 500 MG tablet
500 mg PO DAILY
lisinopril 20 MG tablet
20 mg PO DAILY
aspirin 325 MG tablet,delayed release (DR/EC)
325 mg PO DAILY
alpha lipoic acid 300 MG capsule
300 mg PO Daily
multivitamin with folic acid [Tab-A-Jerica] 1 TABLET tablet
1 tab PO DAILY
acetaminophen 325 MG tablet
325 mg PO Q4HPRN PRN (Reason: if temp > 101 F/ mild pain ) Qty: 30 0RF
loratadine 10 mg Tablet
10 mg PO DAILY
lovastatin 20 mg Tablet
20 mg PO DAILY
Discontinued
lorazepam 0.5 MG tablet
0.5 mg PO DAILYPRN PRN (Reason: ANXIETY)
Discharge Orders:
Discharge Patient (As Directed); Ordered 12/06/23
Ordered By: Wes Robertson
Discharge Date and Time
Print Language: SIER[place] LEONE[place]
[2023-12-06 11:27] VITALS: BP 142/68
[2023-12-06 11:39] LABS: Glucose - Point of Care 118 mg/dl (70-99)
--- NOTE | 2023-12-06 15:59 | CM ---
Patient to return to home with [facility] visiting nurses.
Plan; Home with [facility].
== END 2023-12-06 14:05 | disposition home health service (06) | DRG 375 ==
LOC: 4 WEST ACU 14:20
PROVIDERS: Hospitalist; Nurse Practitioner Adult Health; Surgery; ADMITTING PHYSICIAN Hospitalist; CONSULT PHYSICIAN Internal Medicine Gastroenterology; CONSULT PHYSICIAN Nuclear Medicine Nuclear Cardiology; CONSULT PHYSICIAN Surgery; EMERGENCY PHYSICIAN Emergency Medicine; FAMILY PHYSICIAN Physician Assistant Medical
PROC: 0D7M8DZ Dilation of Descending Colon with Intraluminal Device, Via Natural or Artificial Opening Endoscopic (ICD-10-PCS; 2023-12-01)
PROC: 0DBM8ZX Excision of Descending Colon, Via Natural or Artificial Opening Endoscopic, Diagnostic (ICD-10-PCS; 2023-12-01)
DX: C18.6 Malignant neoplasm of descending colon (principal); K56.690 Other partial intestinal obstruction; E87.6 Hypokalemia; E83.42 Hypomagnesemia; K64.8 Other hemorrhoids; I10 Essential (primary) hypertension; E11.9 Type 2 diabetes mellitus without complications; F32.A Depression, unspecified; F41.9 Anxiety disorder, unspecified; E66.9 Obesity, unspecified; E78.00 Pure hypercholesterolemia, unspecified; Z66 Do not resuscitate; Z68.33 Body mass index [BMI] 33.0-33.9, adult; Z79.84 Long term (current) use of oral hypoglycemic drugs; Z79.82 Long term (current) use of aspirin
CPT/HCPCS: 88305; 71260; 74018; 74177; 76000; 80048; 80053; 81003; 81015; 82378; 82607; 82728; 82746; 82962; 83036; 83540; 83550; 83690; 83735; 85025; 85045; 85610; 87086; 88342; 93005; 93306; 96361; 96365; 96375; 96376; 97116; 97162; 97166; 97530; 99285; C1769; C1876; Q9967

== ENCOUNTER 2023-12-14 06:10 | Inpatient (IN) | payer MEDICARE, SELFPAY ==
--- NOTE | 2023-12-13 14:08 | PTCARENOTE ---
HgB of 9.4 reported, Dr. Villegas to order T/S.
[2023-12-14] VITALS (34 sets, daily range): BP systolic 75–144; BP diastolic 27–63; BMI 32.6
[2023-12-14 06:55] LABS: Glucose - Point of Care 124 mg/dl (70-99)
[2023-12-14] MEDS: TYLENOL 1000 MG PO ×2 (07:02→17:50)
[2023-12-14] MEDS: ENTEREG 12 MG PO (07:02)
[2023-12-14] MEDS: HEPARIN 5000 UNITS SC (07:03)
[2023-12-14] MEDS: NORMOSOL-R 1000 IV ×2 (07:04→14:38)
--- NOTE | 2023-12-14 13:03 | W.IMMPOSTOP ---
Surgical Immed Post Op Note
-
Primary Surgeon: Tevin Moscoso MD
Assisting Surgeon: MARVA Borjas
Pre-op Diagnosis: descending colon cancer
Post-op Diagnosis: same
Procedure Performed: 1) robotic left colectomy 2) takedown splenic flexure
Anesthesia Type: general plus local
Specimen / Cultures: left colon to include stent and tumor
Estimated Blood Loss: 100 cc
Complications: no immediate
Operative Findings: 1) lower abdominal wall adhesions 2) descending colon tumor/stent with associated inflammation/edema
Chaves in bladder.
Family updated in waiting area.
Will send to med surg.
[2023-12-14 13:23] LABS: Glucose - Point of Care 210 mg/dl (70-99)
[2023-12-14] MEDS: NOVOLOG vial 2 UNITS SC ×2 (13:45→15:48)
[2023-12-14 13:51] LABS: % Basophils 0.4 % (0-2); % Eosinophils 0.1 % (0-6); % Immature Granulocytes 0.4 % (0-0.5); % Monocytes 3.5 % (1.7-9.3); % Neutrophils 91.6 % (42.2-75.2); Absolute Basophils 0.1 10^3/uL (0-0.2); Absolute Immature Granulocytes 0.1 10^3/uL (0-0.05); Absolute Lymphocytes 0.6 10^3/uL (1.2-3.4); Absolute Monocytes 0.6 10^3/uL (0.1-0.6); Absolute Neutrophils 14.5 10^3/uL (1.4-6.5); Hematocrit 31.4 % (37.0-47.0); Hemoglobin 9.7 g/dL (12.0-16.0); Mean Corp Hgb Conc. 30.9 g/dL (33.0-37.0); Mean Corpuscular Hgb 25.9 pg (27.0-31.0); Mean Corpuscular Volume 83.7 fL (81.0-99.0); Mean Platelet Volume 10.6 fL (7.4-10.4); Nucleated Red Blood Cells % 0 %; Platelet Count 261 10^3/uL (130-400); Red Blood Cell Count 3.75 10^6/uL (4.20-5.40); Red Cell Dist. Width 17.9 % (11.5-14.5); White Blood Cell Count 15.9 10^3/uL (4.8-10.8)
[2023-12-14 14:18] LABS: Blood Urea Nitrogen 5 mg/dl (7-17); Calcium 7.8 mg/dl (8.4-10.2); Carbon Dioxide 23 mmol/L (22-30); Chloride 101 mmol/L (98-107); Estimated Creatinine Clearance 70 ml/min; Glucose 205 mg/dl (70-99); Potassium 3.4 mmol/L (3.5-5.1); Sodium 135 mmol/L (135-145); eGFR > 60.00
--- NOTE | 2023-12-14 15:36 | CON.HOSP ---
Consultation
-
Date/Time Consultation Requested: 12/14/23 15:14
Date/Time Consultation Performed: 12/14/23 15:45
Requesting Provider: Dr. Moscoso
Performing Provider: Dr. Kim
Reason for Consultation: DM2, HTN
Family Physician
-
Family Physician: INTERVIEWE UNKNOWN - PT NOT
Chief Complaint
-
Left hemicolectomy, colon cancer
History of Present Illness
88-year-old female with recent diagnosis of descending colon cancer who came into the hospital today for elective left hemicolectomy. We were asked to see her in consultation for medical management of diabetes and hypertension.
She is currently in the recovery room and appears stable. No complaints.
Medical History
Past Medical History
Past Medical History: Reports Other
Additional Past Medical History:
DM2
Essential hypertension
Hyperlipidemia
Obesity
Colon adenocarcinoma -diagnosed 12/04/2023
Diverticulosis
Anxiety disorder
Past Surgical History: Reports Other
Additional Past Surgical History:
Hysterectomy
Social History
Tobacco: Non-smoker
Alcohol: None
Drug: None
Personal:
Living: With Family
Family History
Family History: Reviewed & Not Pertinent
Allergies / Home Medications
Allergies reflects when Allergies were last updated in [facility].
Home Medications with original date entered in [facility]
Allergy/Medication List:
Allergies
Allergy/AdvReac Type Severity Reaction Status Date / Time
No Known Allergies Allergy Verified 12/14/23 06:15
Home Medications
alpha lipoic acid 300 mg capsule 300 mg PO Daily Supplement 06/22/18
aspirin 325 mg tablet,delayed release 325 mg PO DAILY Blood Clot Prevention/Tx 06/22/18
citalopram 20 mg tablet 20 mg PO DAILY Mental Health/Anxiety 06/22/18
lisinopril 20 mg tablet 20 mg PO DAILY Blood Pressure 06/22/18
metformin 500 mg tablet 500 mg PO DAILY Diabetes 06/22/18
multivitamin with folic acid 400 mcg tablet (Tab-A-Jerica) 1 tab PO DAILY Supplement 06/22/18
acetaminophen 325 mg tablet 325 mg PO Q4HPRN PRN if temp > 101 F/ mild pain ##30 06/25/18
loratadine 10 mg tablet 10 mg PO DAILY Allergies 11/30/23
lovastatin 20 mg tablet 20 mg PO DAILY High Cholesterol 11/30/23
metronidazole 500 mg tablet 500 mg PO PRE OP 12/13/23
neomycin 500 mg tablet 1 g PO PRE OP 12/13/23
sodium sul 1.479 gram-potas ch 0.188 gram-magnes sul 0.225 gram tablet (Sutab) 1 tab PO PER PKG DIR 12/13/23
Review of Systems
-
History Source: Patient
A 12 point Review of Systems was completed except as noted: Yes
Constitutional: Reports No Symptoms
EENT: Reports No Symptoms
Respiratory: Reports No Symptoms
Cardiac: Reports No Symptoms
Abdomen/GI: Reports No Symptoms
: Reports No Symptoms
Musculoskeletal: Reports No Symptoms
Skin: Reports No Symptoms
Neurological: Reports No Symptoms
Endocrine: Reports No Symptoms
Hematologic/Lymphatic: Reports No Symptoms
Psych: Reports No Symptoms
Physical Exam
Vital Signs
Vital Signs
Temp Pulse Resp BP Pulse Ox
97 F 76 13 117/56 97
12/14/23 13:06 12/14/23 15:30 12/14/23 15:30 12/14/23 15:30 12/14/23 15:30
Physical Exam
General: Well Developed, Well Nourished, No Apparent Distress and Comfortable
HEENT: Normocephalic, Anicteric and Moist Mucous Membranes
Respiratory: Clear
Cardiac: S1/S2 and Regular Rhythm
Breast: Deferred by me
GI: Soft, Non Tender and Non Distended
Musculoskeletal: No Clubbing, No Cyanosis and No Edema
Skin: Warm and Dry
Neuro: Awake, Alert and Oriented
Hematologic/Lymphatic: No Lymphadenopathy
Psych: Calm
Laboratory Results
-
Laboratory Results
12/14/23 13:38
12/14/23 13:38
Impression / Plan
-
Colon adenocarcinoma - involving descending colon. Stable after robotic left colectomy and splenic flexure takedown 12/14/23. Postoperative care per colorectal surgery.
DM2 with hyperglycemia - glucose 205 in the recovery room. She is on metformin 500 mg daily at home. Would use low resistance sliding scale insulin for now, hold metformin.
Iron deficiency anemia - due to colon cancer. Hemoglobin today was 9.7 postoperatively, recheck labs in the morning. Recent hemoglobin was 9.4 when discharged on 12/04/2023.
Hypokalemia -replete intravenously. Magnesium 2.0.
Essential hypertension -stable. Resume lisinopril.
Hyperlipidemia -she is on lovastatin at home.
Depression/anxiety disorder -on citalopram at home.
Obesity due to excess calories
Full code
Thank you for the consultation. Will follow along with you.
[2023-12-14 15:46] LABS: Glucose - Point of Care 181 mg/dl (70-99)
[2023-12-14] MEDS: KCL 270 MEQ IV (15:58)
[2023-12-14] MEDS: TORADOL 10 MG IV (17:50)
[2023-12-14 17:54] LABS: Glucose - Point of Care 193 mg/dl (70-99)
--- NOTE | 2023-12-14 18:34 | PTCARENOTE ---
recieved pt from PACU via bed, with IV fluids running and Potassium rider, family at bedside, resting in bed, no complaints at this time. Oriented to her room, call charles within reach.
[2023-12-14] MEDS: NOVOLOG FLEXPEN-LOW RESISTANCE 1 UNITS SC (18:41)
[2023-12-15] VITALS (8 sets, daily range): BP systolic 111–148; BP diastolic 46–73; PULSE 80; O2SAT 97; BMI 34.5
[2023-12-15] MEDS: TORADOL 10 MG IV ×5 (00:03→23:47)
[2023-12-15] MEDS: TYLENOL 1000 MG PO ×5 (00:07→23:46)
[2023-12-15 00:34] LABS: Glucose - Point of Care 165 mg/dl (70-99)
[2023-12-15] MEDS: NOVOLOG FLEXPEN-LOW RESISTANCE 1 UNITS SC ×2 (00:34→12:28)
[2023-12-15] MEDS: NORMOSOL-R 1000 IV ×2 (02:27→15:28)
[2023-12-15 06:01] LABS: Glucose - Point of Care 133 mg/dl (70-99)
[2023-12-15 06:05] LABS: % Basophils 0.1 % (0-2); % Immature Granulocytes 0.6 % (0-0.5); % Lymphocytes 4.8 % (20.5-51.1); % Monocytes 6.5 % (1.7-9.3); Absolute Immature Granulocytes 0.1 10^3/uL (0-0.05); Absolute Lymphocytes 0.7 10^3/uL (1.2-3.4); Absolute Monocytes 0.9 10^3/uL (0.1-0.6); Absolute Neutrophils 12.4 10^3/uL (1.4-6.5); Hematocrit 27.1 % (37.0-47.0); Hemoglobin 8.7 g/dL (12.0-16.0); Mean Corp Hgb Conc. 32.1 g/dL (33.0-37.0); Mean Corpuscular Hgb 25.8 pg (27.0-31.0); Mean Corpuscular Volume 80.4 fL (81.0-99.0); Mean Platelet Volume 10.8 fL (7.4-10.4); Nucleated Red Blood Cells % 0 %; Platelet Count 244 10^3/uL (130-400); Red Blood Cell Count 3.37 10^6/uL (4.20-5.40); Red Cell Dist. Width 17.8 % (11.5-14.5); White Blood Cell Count 14.1 10^3/uL (4.8-10.8)
[2023-12-15] MEDS: NOVOLOG FLEXPEN-LOW RESISTANCE SC ×3 (06:23→23:51)
[2023-12-15 07:02] LABS: Blood Urea Nitrogen 5 mg/dl (7-17); Calcium 8.3 mg/dl (8.4-10.2); Carbon Dioxide 27 mmol/L (22-30); Chloride 107 mmol/L (98-107); Estimated Creatinine Clearance 72 ml/min; Glucose 130 mg/dl (70-99); Magnesium 2.2 mg/dl (1.6-2.3); Potassium 4.5 mmol/L (3.5-5.1); Sodium 136 mmol/L (135-145); eGFR > 60.00
[2023-12-15] MEDS: ZESTRIL 20 MG PO (08:16)
[2023-12-15] MEDS: ASPIRIN ENTERIC COATED 325 MG PO (08:16)
[2023-12-15] MEDS: PROTONIX 40 MG PO (08:17)
[2023-12-15] MEDS: ENTEREG 12 MG PO ×2 (08:17→20:35)
--- NOTE | 2023-12-15 08:36 | W.PN.CRS1 ---
Today's Communication / Plan
-
Clears
Start Lovenox DVT PPx
DC Chaves
Consult PT
Assessment/Plan
-
88-year-old female with PMH of DM, HTN, HLD, and recent diagnosis of obstructing descending colon cancer s/p colonic stent, presents for elective colectomy
POD 1 robotic left colectomy with takedown of the splenic flexure
� Advance to clears
� Continue pain control with Tylenol, Toradol, morphine as needed; continue Entereg
� Start DVT PPx with Lovenox
� DC Chaves, monitor for void
� OOB/IS, appreciate PT consult
� Continue home medications; appreciate hospitalist
� Follow-up pathology
Subjective Data
Subjective Data
Date of Service: December 15, 2023
No overnight events.
Pain controlled.
Denies nausea/vomiting. Tolerating sips.
+ Chaves
Objective Data
-
Vital Signs
Temp Pulse Resp BP Pulse Ox
98.2 F 77 20 125/64 96
12/15/23 08:01 12/15/23 08:16 12/15/23 08:01 12/15/23 08:16 12/15/23 08:01
Intake & Output
12/14/23 12/15/23 12/16/23
06:59 06:59 06:59
Intake Total 2159 / 2160
Output Total 165 / 0
Balance 510 / 510
Intake:
IV fluids (Total) 2159 / 0
Normosol 1200 / 1200
Output:
Urine, Chaves 1649 / 0
Lab Results
12/15/23 05:46
12/15/23 05:46
Physical Exam
-
General: No Acute Distress and AOx3
Abdomen: Soft, Non Distended, Non Tender, No Guarding, No Rebound and Other (Protuberant at baseline)
Skin: Warm and Dry
Wound: No Signs of Infection, Dressing in Place (With Dermabond) and No Skin Erythema
--- NOTE | 2023-12-15 12:06 | W.PN.HOSP.TC ---
Today's Communication/Plan
-
DC Chaves
PT/OT
Diet per surgery
Assessment / Plan
Assessment / Plan
Gen-AAOx3, NAD, obese
HEENT-NC, AT, anicteric, clear oral mm
Neck-supple
CV-reg, no M, +S1/S2
Lungs-clear B/L
Abd-soft, NT, ND
Ext-no edema
Musculoskeletal-no cyanosis, clubbing
Skin-warm and dry
Neuro-grossly non-focal
Psych-calm, cooperative
Colon adenocarcinoma - involving descending colon. Stable after robotic left colectomy and splenic flexure takedown 12/14/23. Clear liquid diet started today.
DM2 with hyperglycemia -She is on metformin 500 mg daily at home. Hemoglobin A1c 6.3% on 12/01/2023. Glucose 130 this morning. Would use low resistance sliding scale insulin for now, hold metformin.
Acute on subacute iron deficiency anemia - due to colon cancer related blood loss, postoperative blood loss. Recent hemoglobin was 9.4 when discharged on 12/04/2023. Hemoglobin 8.7 this morning. Monitor.
Hypokalemia -resolved.
Essential hypertension -stable. Resume lisinopril.
Hyperlipidemia -she is on lovastatin at home.
Depression/anxiety disorder -on citalopram at home.
Obesity due to excess calories
Full code
DC Chaves
PT/OT
Anticipated Discharge: > 48 hours
Subjective/Interval History
-
Date of Service: December 15, 2023
Patient seen/examined, no complaints.
Objective Data
-
Labs:
Laboratory Results
12/15/23
05:46
WBC 14.1 H
Hgb 8.7 L
Hct 27.1 L
Plt Count 244
Sodium 136
Potassium 4.5 D
Chloride 107
Carbon Dioxide 27
BUN 5 L
Creatinine 0.4 L
Glucose 130 H
Calcium 8.3 L
Vital Signs:
Vital Signs
Temp Pulse Resp BP Pulse Ox
98.2 F 77 20 125/64 96
12/15/23 08:01 12/15/23 08:16 12/15/23 08:01 12/15/23 08:16 12/15/23 08:01
I&O
12/14/23 12/15/23 12/16/23
06:59 06:59 06:59
Intake Total 2160 / 2160
Output Total 1650 / 1650
Balance 510 / 510
Review of Systems
-
History Source: Patient
All other systems: Reviewed and negative
[2023-12-15 12:21] LABS: Glucose - Point of Care 166 mg/dl (70-99)
--- NOTE | 2023-12-15 15:21 | SUR.OPER ---
Pt's diaz cath removed per order. Diaz drained 250 clear yellow urine upon removal. Pt tolerated well. Instructed pt to drink fluids and attempt to urinate when she gets the feeling. will cont to assess, Due to void.
[2023-12-15 16:07] LABS: Glucose - Point of Care 149 mg/dl (70-99)
[2023-12-15] MEDS: LOVENOX 40 MG SC (17:12)
[2023-12-15 22:21] LABS: Glucose - Point of Care 119 mg/dl (70-99)
[2023-12-16 05:38] LABS: Glucose - Point of Care 99 mg/dl (70-99)
[2023-12-16] MEDS: NOVOLOG FLEXPEN-LOW RESISTANCE SC ×4 (05:38→23:30)
[2023-12-16] MEDS: TYLENOL PO (05:39)
[2023-12-16] MEDS: TORADOL IV (05:39)
[2023-12-16 05:55] VITALS: BMI 33.7
[2023-12-16 06:24] LABS: % Eosinophils 3.3 % (0-6); % Immature Granulocytes 0.5 % (0-0.5); % Monocytes 6.1 % (1.7-9.3); % Neutrophils 71.1 % (42.2-75.2); Absolute Basophils 0.1 10^3/uL (0-0.2); Absolute Eosinophils 0.3 10^3/uL (0-0.7); Absolute Immature Granulocytes 0.1 10^3/uL (0-0.05); Absolute Lymphocytes 1.9 10^3/uL (1.2-3.4); Absolute Monocytes 0.6 10^3/uL (0.1-0.6); Absolute Neutrophils 7.4 10^3/uL (1.4-6.5); Hematocrit 26.9 % (37.0-47.0); Hemoglobin 8.4 g/dL (12.0-16.0); Mean Corp Hgb Conc. 31.2 g/dL (33.0-37.0); Mean Corpuscular Hgb 25.6 pg (27.0-31.0); Mean Platelet Volume 10.5 fL (7.4-10.4); Nucleated Red Blood Cells % 0 %; Platelet Count 251 10^3/uL (130-400); Red Blood Cell Count 3.28 10^6/uL (4.20-5.40); Red Cell Dist. Width 17.9 % (11.5-14.5); White Blood Cell Count 10.4 10^3/uL (4.8-10.8)
[2023-12-16 06:59] LABS: Blood Urea Nitrogen 5 mg/dl (7-17); Calcium 8.2 mg/dl (8.4-10.2); Carbon Dioxide 30 mmol/L (22-30); Chloride 108 mmol/L (98-107); Estimated Creatinine Clearance 71 ml/min; Glucose 88 mg/dl (70-99); Potassium 3.9 mmol/L (3.5-5.1); Sodium 139 mmol/L (135-145); eGFR > 60.00
[2023-12-16 07:22] VITALS: BP 142/65
[2023-12-16] MEDS: ZESTRIL 20 MG PO (08:57)
[2023-12-16] MEDS: ENTEREG 12 MG PO ×2 (08:58→23:38)
[2023-12-16] MEDS: PROTONIX 40 MG PO (08:58)
[2023-12-16] MEDS: ASPIRIN ENTERIC COATED 325 MG PO (08:58)
--- NOTE | 2023-12-16 09:42 | W.PN.CRS1 ---
Addendum entered and electronically signed by Zeeshan Mullen MD 12/16/23 10:39:
Patient seen and examined. Agree with assessment plan as document above.
No complaints. Feeling well. Pain well-controlled. No nausea or vomiting. Passing stools, no significant flatus. Ambulating.
Gen: NAD
Abd: obese, soft, mild tenderness in LLQ, non-peritoneal incisions c/d/i - no erythema, ecchymosis or drainage
POD#2 robotic left colectomy with takedown of the splenic flexure
1. Advance to low residue.
2. Continue pain control with Tylenol, Toradol, change morphine to po roxicodone.
3. DVT PPx with Lovenox, TEDS/SCDS.
4. Hgb 8.4 - likely dilutional anemia, recheck cbc in AM.
5. OOB/IS, appreciate PT consult
6. Continue home medications; appreciate hospitalist
7. Follow-up pathology.
Original Note:
Today's Communication / Plan
-
low residue
po roxicodone
trend hgb
Assessment/Plan
-
88-year-old female with PMH of DM, HTN, HLD, and recent diagnosis of obstructing descending colon cancer s/p colonic stent, presents for elective colectomy
POD#2 robotic left colectomy with takedown of the splenic flexure
1. Advance to low residue.
2. Continue pain control with Tylenol, Toradol, change morphine to po roxicodone.
3. DVT PPx with Lovenox, TEDS/SCDS.
4. Hgb 8.4 - likely dilutional anemia, recheck cbc in AM.
5. OOB/IS, appreciate PT consult
6. Continue home medications; appreciate hospitalist
7. Follow-up pathology.
Subjective Data
Subjective Data
Date of Service: December 16, 2023
Patient states she is walking around the halls. She is eating a clear liquid diet. She denies nausea or vomiting. She is having bowel movements.
Objective Data
-
Vital Signs
Temp Pulse Resp BP Pulse Ox
97.8 F 70 17 142/65 95
12/16/23 07:22 12/16/23 07:22 12/16/23 07:22 12/16/23 07:22 12/16/23 07:22
Intake & Output
12/15/23 12/16/23 12/17/23
06:59 06:59 06:59
Intake Total 2160 / 2160
Output Total 1650 / 1650 425 / 425
Balance 510 / 510 -425 / -425
Intake:
IV fluids (Total) 2160 / 2160
Normosol 1200 / 1200
Output:
Urine, Chaves 1650 / 1650 250 / 250
Urine, Voided 175 / 175
Other:
Number of approximated MODERATE 2
amounts of urine
Lab Results
12/16/23 06:03
12/16/23 06:03
Physical Exam
-
General: No Acute Distress and AOx3
Abdomen: Soft, Non Distended and Tender (LUQ - mild)
Skin: Warm and Dry
Incision: Clear, Dry, Intact
[2023-12-16 11:44] LABS: Glucose - Point of Care 100 mg/dl (70-99)
[2023-12-16] MEDS: TORADOL 10 MG IV ×3 (11:48→23:40)
[2023-12-16] MEDS: TYLENOL 1000 MG PO ×3 (11:48→23:35)
--- NOTE | 2023-12-16 12:18 | W.PN.HOSP.TC ---
Today's Communication/Plan
-
CBC in am
Assessment / Plan
Assessment / Plan
Gen-AAOx3, NAD, obese
HEENT-NC, AT, anicteric, clear oral mm
Neck-supple
CV-reg, no M, +S1/S2
Lungs-clear B/L
Abd-soft, NT, ND
Ext-no edema
Musculoskeletal-no cyanosis, clubbing
Skin-warm and dry
Neuro-grossly non-focal
Psych-calm, cooperative
Colon adenocarcinoma - involving descending colon. Stable after robotic left colectomy and splenic flexure takedown 12/14/23. Diet advanced to low res.
DM2 with hyperglycemia -She is on metformin 500 mg daily at home. Hemoglobin A1c 6.3% on 12/01/2023. Glucose 88 this morning. Would use low resistance sliding scale insulin for now, hold metformin. Resume metformin on discharge
Acute on subacute iron deficiency anemia - due to colon cancer related blood loss, postoperative blood loss. Recent hemoglobin was 9.4 when discharged on 12/04/2023. Hemoglobin 8.4 this morning. Monitor.
Hypokalemia -resolved.
Essential hypertension -stable. Continue lisinopril.
Hyperlipidemia -she is on lovastatin at home.
Depression/anxiety disorder -on citalopram at home.
Obesity due to excess calories
Full code
Anticipated Discharge: Within 24 hours
Subjective/Interval History
-
Date of Service: December 16, 2023
Patient seen and examined. Feels fine, no complaints.
Objective Data
-
Labs:
Laboratory Results
12/16/23
06:03
WBC 10.4
Hgb 8.4 L
Hct 26.9 L
Plt Count 251
Sodium 139
Potassium 3.9
Chloride 108 H
Carbon Dioxide 30
BUN 5 L
Creatinine 0.4 L
Glucose 88
Calcium 8.2 L
Vital Signs:
Vital Signs
Temp Pulse Resp BP Pulse Ox
97.8 F 70 17 142/65 95
12/16/23 07:22 12/16/23 07:22 12/16/23 07:22 12/16/23 07:22 12/16/23 07:22
I&O
12/15/23 12/16/23 12/17/23
06:59 06:59 06:59
Intake Total 2160 / 2160
Output Total 1650 / 1650 425 / 425
Balance 510 / 510 -425 / -425
Review of Systems
-
History Source: Patient
All other systems: Reviewed and negative
[2023-12-16 15:11] VITALS: BP 131/57
[2023-12-16] MEDS: LOVENOX 40 MG SC (17:15)
[2023-12-16 17:31] LABS: Glucose - Point of Care 119 mg/dl (70-99)
[2023-12-16 21:36] LABS: Glucose - Point of Care 125 mg/dl (70-99)
[2023-12-16 23:00] VITALS: BP 141/66
[2023-12-17 06:00] VITALS: BMI 33.2
[2023-12-17] MEDS: TYLENOL 1000 MG PO (06:03)
[2023-12-17] MEDS: TORADOL 10 MG IV (06:04)
[2023-12-17 06:15] LABS: % Basophils 1.1 % (0-2); % Eosinophils 7.2 % (0-6); % Immature Granulocytes 0.3 % (0-0.5); % Lymphocytes 19.3 % (20.5-51.1); % Monocytes 6.7 % (1.7-9.3); % Neutrophils 65.4 % (42.2-75.2); Absolute Basophils 0.1 10^3/uL (0-0.2); Absolute Eosinophils 0.7 10^3/uL (0-0.7); Absolute Lymphocytes 1.7 10^3/uL (1.2-3.4); Absolute Monocytes 0.6 10^3/uL (0.1-0.6); Absolute Neutrophils 5.9 10^3/uL (1.4-6.5); Hematocrit 26.9 % (37.0-47.0); Hemoglobin 8.4 g/dL (12.0-16.0); Mean Corp Hgb Conc. 31.2 g/dL (33.0-37.0); Mean Corpuscular Hgb 25.9 pg (27.0-31.0); Mean Platelet Volume 10.9 fL (7.4-10.4); Nucleated Red Blood Cells % 0 %; Platelet Count 242 10^3/uL (130-400); Red Blood Cell Count 3.24 10^6/uL (4.20-5.40); Red Cell Dist. Width 17.7 % (11.5-14.5)
[2023-12-17 07:18] LABS: Glucose - Point of Care 131 mg/dl (70-99)
[2023-12-17 08:10] VITALS: BP 156/71
--- NOTE | 2023-12-17 09:07 | W.PN.CRS1 ---
Addendum entered and electronically signed by Zeeshan Mullen MD 12/17/23 10:26:
Patient seen and examined. Agree with assessment plan as documented below.
Tolerating a low residue diet. Moving her bowels and passing flatus. No nausea or vomiting. No fevers. Stable postoperative anemia. Cleared for discharge.
Original Note:
Today's Communication / Plan
-
discharge
Assessment/Plan
-
88-year-old female with PMH of DM, HTN, HLD, and recent diagnosis of obstructing descending colon cancer s/p colonic stent, presents for elective colectomy
POD#3 robotic left colectomy with takedown of the splenic flexure
1. Tolerating a low residue diet.
2. Continue pain control with Tylenol, Toradol, change morphine to po roxicodone.
3. DVT PPx with Lovenox, TEDS/SCDS.
4. Hgb 8.4 - likely dilutional anemia, unchanged.
5. OOB/IS, appreciate PT consult
6. Continue home medications; appreciate hospitalist
7. Follow-up pathology.
8. OKay for discharge today with home VN. Discussed with patient and daughter. All discharge instructions discused with patient including medications, activity levels, and follow up. All questions answered.
Subjective Data
Subjective Data
Date of Service: December 17, 2023
Patient states she has no pain. She is having bowel movements and flatus. She is tolerating a diet. She has no complaints.
Objective Data
-
Vital Signs
Temp Pulse Resp BP Pulse Ox
98.0 F 71 16 156/71 97
12/17/23 08:10 12/17/23 08:10 12/17/23 08:10 12/17/23 08:10 12/17/23 08:10
Intake & Output
12/16/23 12/17/23 12/18/23
06:59 06:59 06:59
Intake Total 1020 / 1020 240 / 240
Output Total 425 / 425
Balance -425 / -425 1020 / 1020 240 / 240
Intake:
Oral fluids 1020 / 1020 240 / 240
Output:
Urine, Chaves 250 / 250
Urine, Voided 175 / 175
Other:
Number of approximated MODERATE 2 1 2
amounts of urine
Number of unmeasured liquid
stools
Rectum 1
Lab Results
12/17/23 04:22
12/16/23 06:03
Physical Exam
-
General: No Acute Distress and AOx3
Abdomen: Soft, Non Distended and Non Tender
Skin: Warm and Dry
Incision: Clear, Dry, Intact
[2023-12-17] MEDS: NOVOLOG FLEXPEN-LOW RESISTANCE SC (09:09)
[2023-12-17] MEDS: PROTONIX 40 MG PO (09:10)
[2023-12-17] MEDS: ASPIRIN ENTERIC COATED 325 MG PO (09:10)
[2023-12-17] MEDS: ENTEREG 12 MG PO (09:10)
[2023-12-17] MEDS: ZESTRIL 20 MG PO (09:11)
--- NOTE | 2023-12-17 09:54 | W.DS.TRANS ---
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
-
Discharge Instructions:
Sleep Apnea Risk Low
Discharge Diagnosis/Procedures robotic left colectomy with takedown of the
splenic flexure
Diet Low Residue
Activity No strenuous activity
Additional Activity No lifting over 10lbs (gallon of milk)
Driving Restrictions No driving for 1 week
Bathing Restrictions OK to Shower
Blood Work CBC in 1 week
Wound Care Allow glue to naturally fall off. Do not pick at
incisions.
Instructions: Low Fiber Diet
Stand-Alone Forms:
Changes to Home Medications: No
Discharge Medications:
DC Medications w/original date entered in [employer]
alpha lipoic acid 300 mg capsule 300 mg PO Daily Supplement 06/22/18
aspirin 325 mg tablet,delayed release 325 mg PO DAILY Blood Clot Prevention/Tx 06/22/18
citalopram 20 mg tablet 20 mg PO DAILY Mental Health/Anxiety 06/22/18
lisinopril 20 mg tablet 20 mg PO DAILY Blood Pressure 06/22/18
metformin 500 mg tablet 500 mg PO DAILY Diabetes 06/22/18
multivitamin with folic acid 400 mcg tablet (Tab-A-Jerica) 1 tab PO DAILY Supplement 06/22/18
acetaminophen 325 mg tablet 325 mg PO Q4HPRN PRN if temp > 101 F/ mild pain ##30 06/25/18
loratadine 10 mg tablet 10 mg PO DAILY Allergies 11/30/23
lovastatin 20 mg tablet 20 mg PO DAILY High Cholesterol 11/30/23
Home Medication Changes
Pending Results: Yes
Additional Pending Results:
OR pathology
--- NOTE | 2023-12-17 10:25 | W.DCSUMMARY ---
Discharge Summary
Discharge Data
Date of Admission: 12/14/23
Date of Discharge: 12/17/23
-
Pending Results: Yes
Additional Pending Results:
OR pathology
Hospital Course
88yo female presented for a robotic left colectomy due to descending colon cancer. It was performed by Dr. Moscoso and she underwent the procedure on 12/14/2023. The patient was brought to the medical surgical floor post operatively. The following day
she was started on clears, her diaz was removed, and she was started on Lovenox. She was out of bed with physical therapy. Her diet was advance to a low residue diet throughout her stay. She had flatus and bowel movements and her pain was
controlled. On post op day 3, it was determined the patient could be discharged to home with visiting nurses. She is to follow up with Dr. Moscoso in 2 weeks. Discussed medications, activity levels, and follow up with patient and her daughter.
Pathology was pending at the time of discharge.
Discharge Plan
-
Patient Disposition: Home with Home Care
Discharge Diagnosis/Procedures: robotic left colectomy with takedown of the splenic flexure
Diet: Low Residue
Activity: No strenuous activity
Additional Activity: No lifting over 10lbs (gallon of milk)
Driving Restrictions: No driving for 1 week
Bathing Restrictions: OK to Shower
Blood Work: CBC in 1 week
Wound Care: Allow glue to naturally fall off. Do not pick at incisions.
Activity Restrictions/Additional Instructions:
Follow up with your primary care physician in 1 week.
Instructions: Low Fiber Diet
Referrals:
Brian Moscoso MD [Active] - 01/01/24 10:00 am
Additional Discharge Medication Instructions: Tylenol or Ibuprofen as needed for pain. Maximum dose of Tylenol is 4,000mg/24 hours. Maximum dose of Ibuprofen is 3,200mg/24 hours.
Prescriptions:
Continued
citalopram 20 MG tablet
20 mg PO DAILY
metformin 500 MG tablet
500 mg PO DAILY
lisinopril 20 MG tablet
20 mg PO DAILY
aspirin 325 MG tablet,delayed release (DR/EC)
325 mg PO DAILY
alpha lipoic acid 300 MG capsule
300 mg PO Daily
multivitamin with folic acid [Tab-A-Jerica] 1 TABLET tablet
1 tab PO DAILY
acetaminophen 325 MG tablet
325 mg PO Q4HPRN PRN (Reason: if temp > 101 F/ mild pain ) Qty: 30 0RF
loratadine 10 mg Tablet
10 mg PO DAILY
lovastatin 20 mg Tablet
20 mg PO DAILY
Discontinued
metronidazole [Flagyl] 500 mg Tablet
500 mg PO PRE OP
neomycin 500 mg Tablet
1 g PO PRE OP
Sutab 1.479-0.188- 0.225 gram Tablet
1 tab PO PER PKG DIR
Discharge Orders:
Discharge Patient (As Directed); Ordered 12/17/23
Ordered By: Milana Lu
Discharge Date and Time
Print Language: TELUGU
--- NOTE | 2023-12-17 11:26 | CM ---
Met with pt and her son at bedside
Pt lives alone in an apartment with set-up. Her son lives next door.
Describes self as mostly independent. Family assists with with shopping, cleaning
DME - includes hospital bed, rolling walker cane, elevated toilet seat, shower chair, grab bars
SNF - denies past snf
HH - current with [facility]
Has ride at d/c
PCP - Dr Teodora Brown
Discussed IMM
Will send referral in [facility] to resume services with [facility]
Plan - home with [facility]
Fax - [phone]
[2023-12-17 16:13] VITALS: BP 122/48
== END 2023-12-17 11:59 | disposition home health service (06) | DRG 330 ==
LOC: 3 WEST ACU 06:10
PROVIDERS: ADMITTING PHYSICIAN Surgery; CONSULT PHYSICIAN Hospitalist
PROC: 0DTG4ZZ Resection of Left Large Intestine, Percutaneous Endoscopic Approach (ICD-10-PCS; 2023-12-14)
PROC: 8E0W4CZ Robotic Assisted Procedure of Trunk Region, Percutaneous Endoscopic Approach (ICD-10-PCS; 2023-12-14)
PROC: 0DNU4ZZ Release Omentum, Percutaneous Endoscopic Approach (ICD-10-PCS; 2023-12-14)
DX: C18.6 Malignant neoplasm of descending colon (principal); D62 Acute posthemorrhagic anemia; K66.0 Peritoneal adhesions (postprocedural) (postinfection); I10 Essential (primary) hypertension; E78.5 Hyperlipidemia, unspecified; K57.30 Diverticulosis of large intestine without perforation or abscess without bleeding; F41.9 Anxiety disorder, unspecified; D50.9 Iron deficiency anemia, unspecified; E87.6 Hypokalemia; F32.A Depression, unspecified; E66.09 Other obesity due to excess calories; E11.65 Type 2 diabetes mellitus with hyperglycemia; Z68.33 Body mass index [BMI] 33.0-33.9, adult
CPT/HCPCS: 88309; 80048; 82962; 83735; 85025; 86850; 86900; 86901; 97162; J1335

== ENCOUNTER → 2024-06-07 10:32 | Outpatient (REF) | payer MEDICARE, SELFPAY | LOC: HWRAD 10:32 | PROVIDERS: ATTENDING PHYSICIAN Internal Medicine Hematology & Oncology; FAMILY PHYSICIAN Physician Assistant Medical | DX: C18.9 Malignant neoplasm of colon, unspecified (principal); D50.9 Iron deficiency anemia, unspecified | CPT/HCPCS: 71260; 74177; Q9967 ==